=== PATIENT | female | born 1960 | race Caucasian/White ===

== ENCOUNTER → 2022-12-03 | Outpatient (CLI) | payer BC | END | disposition home or self-care (01) | LOC: LABPAT 10:33 | PROVIDERS: ATTEND Orthopaedic Surgery | DX: Z01.812 Encounter for preprocedural laboratory examination (principal); M47.812 Spondylosis without myelopathy or radiculopathy, cervical region; M48.02 Spinal stenosis, cervical region; Z22.322 Carrier or suspected carrier of Methicillin resistant Staphylococcus aureus | CPT/HCPCS: 87070 ==

== ENCOUNTER 2022-12-09 05:36 | Inpatient (IN) | payer BC ==
--- NOTE | 2022-12-08 07:17 | P.HPOR ---
History of Present Illness H&P Date: 12/03/22 . [facility] H&P D:Date: 12/03/22 : 04:56pm .T:Title: *Allergies: Age: 62 year Height: 5'6" Weight: 145 lbs BP:/ BMI: 23.40 kg/m2 Occupation: Unemployed VAS: 10 CHIEF COMPLAINT: Cervical numbness DOI: x1 year DOS: n/a Duration of current treatment regiment: >6 months HISTORY: Xrays Brought xrays from outside facility which were reviewed. New xrays taken in office Trauma or injury No Work-Related No Pain description burning. Location posterior Patient notes that their pain radiates to bilateral upper extremities Activity Modification yes greater than 12 weeks without relief Hand Dominance left TREATMENTS COMPLETED: 6 weeks of PT completed? Month and Year of last PT date? No Physician directed home exercise completed? No Medications No List: Motrin, Tylenol, Medrol, Flexeril greater than 3 weeks without relief Alternative interventions Chiropractic: yes Massage therapy: yes R.I.C.E: yes Brace: No Injections No RFA: No SUBJECTIVE: Ms. Powers presents to the office for an evaluation of their cervical numbness. Patient reports a mild buring and tingling cervical pain ongoing for approx 1 year with no known injury or trauma to indicate an exact onset of their symptoms. In addition to their cervical pain, they do report that it radiates across her bilateral shooulders and into the bilateral upper extremities, associated with numbness and tingling through C4-C5 dermatomal distribution. Ov palomo the patient has seen a progressive increase in symptoms since their onset. Ms. Powers symptoms are exacerbated with flexion or extension of the cervical spine, lifting and/or reaching overhead, due to this they notes that it is increasingly difficult for Ms. Powers to complete many of their daily tasks. She reports an increase in weakness and dropping items without notice from her hands. Ms. Powers states she has had some bladder or bowel retention/incontinence more recently. She does have a history of IBS. Patient is having moderate sleep disturbances as well due to their ongoing pain and associated symptoms. Regarding treatments, the patient has previously trialed the above listed modalities. Patient denies trialing any other modalities at this time. For their symptoms, the patient denies taking analgesics/anticoagulants/narcotics/FER-analogs). Otherwise the patient denies any f/c/sob/cp, no perineal numbness/tingling, and ambulates independently. Dr. Araiza present in exam room and discussed surgical intervention. The patients' past social, medical, family, surgical history, as well as review of systems, have been reviewed. Please refer to the Neurosurgery History and Physical form that has been scanned in to our electronic medical record system. 14 points review of systems completed and as stated in HPI, all other systems reviewed are negative. P3 Social History: .CE:Clinical Elements:Clinical Elements: Smoking:Former Smoker >5 yrs .CE:Clinical Elements:Clinical Elements: Smoking Amount: 1 PPD .CE:Clinical Elements:Clinical Elements: Alcohol: occasional alcohol P3 .CE:Clinical Elements:Clinical Elements: Alcohol Amount: 1-2 drinks/wk P3 Family History: Reviewed, see appropriate section of the chart for details. P2 Past Medical History: Reviewed, see appropriate section of the chart for details. Current Medications: none P1 PHYSICAL EXAMINATION: General: Awake, alert, appropriate for age, in no acute distress. HEENT: No unusual neck masses around region of lateral neck triangle, thyroid, supraclavicular groove Heart: Regular rate and rhythm, normal S1, S2 and no murmur/gallop. Lungs: Clear to auscultation bilaterally with no use of accessory muscles. Extremities: Skin warm and dry without acute lesions, coloration, temperature, skin intact, no tenderness or erythema Integument: Hairy patches: ABSENT Dorsal skin dimples: ABSENT Cafe au lait spots: ABSENT Surgical incisions: n/a Palpation: Please see Pain drawing on Intake sheet for further detail. Midline spinal tenderness: No E6 Cervical Tenderness: Yes E6 Paralumbar tenderness: No E6 Parathoracic tenderness: No E6 Buttocks tenderness: No E6 Sacroilliac Tenderness: No POSTURAL and MUSCULO-SKELETAL EVALUATION: Coronal Balance: NEUTRAL Recumbent testing: Patient is able to lay flat on back Sagittal Balance: NEUTRAL Shoulder Profile: LEVEL Pelvic Girdle: LEVEL Neck ROM: RESTRICTED Lumbar ROM: UNRESTRICTED Shoulder ROM: Symmetrical Hip ROM: Symmetrical Knee ROM: Symmetrical Hands: Normal appearance, symmetrical Feet: Normal appearance, Symmetrical VASCULAR STATUS : LEFT RIGHT Wrist Pulses INTACT INTACT Pedal Pulses (Dors. pedis & post.tibialis) INTACT INTACT Color NORMAL NORMAL Edema Absent Absent NEUROLOGIC EXAMINATION: Mental Status:Awake and alert, fully oriented, with normal attention, concentration and memory, and fluent, appropriate speech. Cranial Nerves: I: Olfactory not tested. II: Visual acuity normal, no visual field deficit noted with confrontation. III,IV: Normal pupillary reflexes & intact extraocular movements without nystagmus. V,: Intact symmetrical facial sensation. VII: Intact symmetrical facial motor movement VIII: Hearing intact. IX,X: Intact gag, swallow, & normal voice. XI: Sternocleidomastoid, trapezius function intact. XII: Tongue midline with normal movements. L'hermitte's Sign: Negative / absent Spurling'Sign: Absent bilaterally. Cubital percussion test: Absent bilaterally. Rome-Tinel sign - Carpal region: Absent bilaterally. Straight Leg Raising: Absent bilaterally. Crossed straight leg raise: negative O8 MOTOR EXAM (0-5/5, N/T Muscle appearance: Symmetrical, without signs of atrophy or dystrophy UPPER EXTREMITY RIGHT LEFT Shoulder Abduction 4/5 4/5 Biceps 4/5 4/5 Triceps 4/5 4/5 Wrist Extension 4/5 4/5 Hand Intrnsics 4/5 4/5 Carpenter Packing 4/5 4/5 Hand and finger dexterity intact bilaterally? yes Disdiadochokinesis examination negative bilaterally? yes LOWER EXTREMITY RIGHT LEFT Hip Flexion 5/5 5/5 Knee Extension 5/5 4/5 Knee Flexion 5/5 5/5 Dorsiflexion 5/5 5/5 Plantarflexion 4/5 5/5 EHL 5/5 5/5 FHL 5/5 5/5 Toe heel walk / heel-toe walk intact while maintaining satisfactory balance? yes Squatting/straightening w/o assistance to a min of 60 degree knee flexion? yes Single leg stance: intact Trendelenburg sign negative bilaterally REFLEXES(0-4/2, NT)Upper ExtremityLower Extremity Right 3 2 Left 3 2 Pathological Reflexes RIGHT LEFT Rome's Present Present Clonus Absent Absent Babinski Absent Absent Sensory system (0-4, N/T) Test type RU MIKE RL LL Joint-Position 1 1 2 2 Vibration 1 1 2 2 Pain & LT sense 1 1 2 2 Dermatomal Deficit: C4-C5 C4-C5 None None Gait and Functional Evaluation: Ambulatory aids: Independent Romberg's test: Intact bilaterally Steady Gait RADIOGRAPHIC STUDIES: XRay Cervical multiview (Lateral, Flexion, Extension, AP, Oblique) 6 views taken at [facility] on 10/13/22: Severe spondylitic and degenerative changes with straightening of the normal lordosis. Complete disc collapse from C2-T1. Severe bilateral foraminal stenosis C3-C7. Vertebral body heights are preserved. No subluxation between flexion and extension films. No acute osseous abnormalities. MRI scancompleted at Outside facility from 09[facility]23/22 [facility]: Impression: 1. C3-C4: Moderate disc height loss and dislocation. Moderate facet hypertrophy. Diffuse circumferential bulge, eccentric to the left. Mild right and moderate left neural foraminal narrowing. Moderate facet hypertrophy. Moderate narrowing of the central canal is 7.5 mm. 2. C4-C5: Moderate to severe disc height loss and desiccation. Diffuse cir cumferential bulge with moderate facet hypertrophy and uncovertebral arthopathy. Moderately severe narrowing of the central canal to 6 mm. Moderate to severe bilateral neural foraminal narrowing. Again underlying signal abnormality is seen within the cord concerning for myelomalacia. 3. C5-C6: Moderate to severe disc height loss with desiccation. Broad based disc osteophyte complex, eccentric to the left. Mild right and moderate to severe left neural foraminal narrowing. Moderate to severe narrowing of the central canal to 6 mm. Facet hypertrophy, uncovertebral arthropathy. 4. C6 to C7: Moderate to severe disc height loss and desiccation. Diffuse circum-[place] bulge with mild right and moderate left neural foraminal narrowing. Facet hypertrophy, uncovertebral arthropathy. Mild narrowing of the central canal. IMPRESSION: It was my pleasure to have seen and examined Zena. I reviewed the patient's clinical syndrome, physical findings, and imaging studies during the appointment today. It is my impression that the patient has a diagnosis of. 1. Cervical spondylotic myelopathy with myelomalacia 2.Severe spondylosis with stenosis C3-7 3. UE weakness 4. LE weakness 5. Gait instability 6. Neck pain I outlined the natural course history without intervention and various interventional options. PLAN: Based on my findings I suggest the following course of action: I discussed treatment options with the patient, including operative and non- operative options, and they have elected to proceed with the following surgical procedure: cervical C2-T1 360 decompression and fusion with staged: Step 1. C3-C7 ACDF; Step 2. C2-T2 decompression The indications, risks, benefits, and alternatives to surgery were discussed wit h the patient and family at length. Specifically but not limited to the risks of infection, stiffness, recurrence of symptoms, need for revision surgery, local numbness, neurovascular injury, and blood clots were discussed. The patient's questions were answered. The decision to proceed was made. Consent will be obtained for the procedure. -Ambulate daily -Take medications as directed -Ice and rest for pain and swelling control. Follow- up: Post op Surgical Procedure Risk Review Zena Powers is a 62 year old female presenting for evaluation of sudden onset of *UE weakness, gait instability, neck pain, radicular pain. It was my pleasure to have seen and examined Ms. Powers. In our visit today we have had a chance to go over subjective complaints, physical examination findings and treatments, including the natural course history without intervention and various interventional options. The imaging demonstrates *Severe spondylosis with stenosis, severe C3-7 with flattened cervical lordosis . On physical exam, Ms. Powers demonstrates *UE weakness, myelopathic findings including hoffmans b/l, 3/4 DTR all, unstady gait, fine motor disrutption . I explained to the patient that as her condition progresses it could cause *Continued or progressive symptoms . At this time, based on the patients imaging and physical exam, I recommend surgery in the form or a: *staged procedure Anterior C3-7 discectomy and fusion with a posterior C2-T2 decompre ssion and fusion . I discussed the risk and benefits of this procedure at length with Ms. Powers. The patient spouseagreed to consider pursuing the procedure mentioned above. Plan: 1. * Staged procedure. I: Anterior C3-7 discectomy and fusion with a II: posterior C2-T2 decompression and fusion 2. * Follow up with PCP for surgical clearance 3. * Review of surgical risks and benefits as well as an educational packet on the proposed surgical procedure. 4. DEL Risks: All surgical procedures come with inherent risks, including those related to positioning, anesthesia, intraoperative findings, and postoperative complications. It is important to understand that surgery does not come with any guarantee of a successful outcome as complications and adverse events are always possible. The patient was given a handout in office today discussing the surgical procedure and risks associated with the intervention, both of which were discussed with the patient. These risks include but are not limited to the following: ? Experiencing same, different or even worse symptoms in back, neck, arms, or legs compared to before surgery. ? Requiring further surgery or other forms of treatment presently or at some time in the future at same or other levels of the intended spine surgery. ? On an extreme but fortunately relatively rare basis severe complication such as blindness, stroke, heart attack, temporary and/or permanent nerve injury, paralysis, coma, or may occur, sometimes without known explanation. ? Surgical complications may include but are not limited to risk of infection, fluid accumulation in the surgical dissection site, including a seroma or hematoma, that requires additional surgery, wound drainage, bleeding, new numbness or weakness, vision changes/loss, spinal fluid leakage, non-healing and/or infected incision, headaches, difficulty or inability to swallow, hoarseness, hemopneumothorax, pneumothorax, impotence, retrograde ejaculation, vaginal dryness; injury to nerves, spinal cord, blood vessels, lymphatics or other vital organs (i.e., bowel injury, injury to the great vessels); heterotopic bone formation; complications related to the hardware such as screws, rods, cages including misplaced hardware, device failure, instrumentation at the wrong spine level, hardware fracture/breakage, or hardware loosening; vertebral failure of the spinal column above or below the newly placed hardware; retained surgical instrumentations or devices and the need for further surgery. ? Medical risks of the planned spine surgery include but are not limited to generalized Infections to the whole body or local areas outside of the surgical site (sepsis), heart attack, bleeding, anaphylaxis, meningitis, seizure, epilepsy, hearing loss, burn chase, laceration of the head or other areas of the body, bruising, hypersensitivity of the skin, bladder over distension; allergic reaction; shoulder injury related to positioning; fat, blood and air clots to other areas of the body like heart, lungs, brain; failure of internal organs such as lungs, kidneys, liver and excessive bleeding. If blood transfusions are necessary, note that transfusions may cause intolerance reactions such as anaphylaxis or other complex reactions. Despite best efforts, the results of spine surgery might not heal in terms of abram ne, soft tissues such as skin, fascia, ligaments, and joints. Additionally, in order to achieve best possible results, spine surgery may be carried out beyond the initially planned levels and involve decompression, fusion including insertion of hardware at levels other than the original intended area of surgical interest change some portions of the procedure in order to ensure the best possible outcomes. With spine surgery and spinal fusion, there are different off label uses of instrumentation (devices, implants and hardware) as well as biological substances (bone morphogenic proteins, demineralized bone matrix) as well as using extra bone from allograft sources (i.e. cadaver bone) or autograft (iliac crest bone, ribs, or the spine itself). The patient has been given information about these practices and their inherent risks and benefits. [facility] Physician Assistants are medically trained surgical providers who function in the outpatient, inpatient, and operating room setting under the direct supervision of the attending surgeon.They assist in the operating room with direct supervision of the attending surgeons. The patient has had a chance to review all the listed information, has been given print outs detailing this information, and has had all his/her questions answered to their satisfaction. It was my pleasure to have seen and examined Ms. Powers. In our visit today we have had a chance to go over my understanding of our patient's current condition, the natural course history without intervention and various interventional options. Questions were invited and answered, and the patient wishes to proceed as outlined above. I have seen and examined the patient for 25 minutes and we have spent more than 50% of the time in repeat and detailed counseling about the patient's condition, its natural course history with out and as much as can be predicted with surgery and re-review of various surgical treatment options. In conclusion,Ms. Powers and her spouse/partner requested we proceed with the above suggested surgery and are willing to accept risks and limitations of the suggested surgery as nature of the disease process and our best attempts at treatment for the condition. Thank you again for allowing us to be part of your patient's care. Please don't hesitate to contact me if you have any further questions. Signed and authenticated by: [facility] [address] [address] Past Medical History Past Medical History: COPD, Eye Disorder, Hyperlipidemia, Osteoarthritis (OA) Additional Past Medical History / Comment(s): Glaucoma. History of Any Multi-Drug Resistant Organisms: None Reported Past Surgical History: Orthopedic Surgery Additional Past Surgical History / Comment(s): Right wrist carpal tunnel surgery, right knee surgery. Past Anesthesia/Blood Transfusion Reactions: No Reported Reaction Past Psychological History: No Psychological Hx Reported Smoking Status: Current every day smoker Past Alcohol Use History: Occasional Additional Past Alcohol Use History / Comment(s): Smokes 1 ppd since age 15. Past Drug Use History: None Reported - Past Family History Sister(s) Family Medical History: No Reported History Medications and Allergies Home Medications Medication Instructions Recorded Confirmed Type Cholecalciferol [Vitamin D3 (125 250 mcg PO DAILY 12/04/22 12/04/22 History Mcg = 5000 Iu)] Collagen Powder 1 dose PO DAILY 12/04/22 12/04/22 History Psyllium Husk (with Sugar) 1 dose PO DAILY 12/04/22 12/04/22 History [Metamucil Powder] Vitamin C 3 tab PO DAILY 12/04/22 12/04/22 History Vitamin K2 [Mk-7] 180 mcg PO DAILY 12/04/22 12/04/22 History Allergies Allergy/AdvReac Type Severity Reaction Status Date / Time iodine IV Allergy Vomiting Uncoded 12/04/22 14:45 Physical Examination Osteopathic Statement: *. No significant issues noted on an osteopathic structural exam other than those noted in the History and Physical/Consult.
[~2022-12-09 05:36] MED LIST: ACETAMINOPHEN TAB 500 MG TAB PO PRN; GABAPENTIN 300 MG CAP PO PRN; ONDANSETRON 4 MG/2 ML VIAL IVP PRN; TRANEXAMIC 1,000 MG/100ML-NACL 1,000 MG in SALINE 1 100ML.BAG IVPB PRN
[2022-12-09] MEDS ORDERED: DEXAMETHASONE SOD PHOSPHATE 4 MG/ML 1 ML VIAL IV ONE (05:44)
[2022-12-09] MEDS ORDERED: LIDOCAINE 1% (10MG/ML) FOR IV START INTRADERMA PRN (05:44)
[2022-12-09] MEDS ORDERED: droPERidol 5 MG/2 ML VIAL IVP ONE (05:44)
[2022-12-09] MEDS: LACTATED RINGERS 1,000 ML IV SCH (05:56)
[2022-12-09] MEDS ORDERED: fentaNYL (PF) 50 MCG/ML 2 ML AMP IVP ONE (06:58)
[2022-12-09] MEDS ORDERED: MIDAZOLAM 2 MG/2 ML VIAL IVP ONE (06:58)
[2022-12-09] MEDS ORDERED: HYDROmorphone 0.5 MG/0.5 ML SYRINGE IVP PRN (07:00)
[2022-12-09] MEDS ORDERED: ONDANSETRON 4 MG/2 ML VIAL IVP PRN (07:00)
[2022-12-09] MEDS ORDERED: ONDANSETRON 4 MG/2 ML VIAL ONE (07:50)
[2022-12-09] MEDS ORDERED: SUCCINYLCHOLINE CHLORIDE 200 MG/10 ML VIAL IV ONE (07:50)
[2022-12-09] MEDS ORDERED: hydrALAZINE HCL 20 MG/ML 1 ML VIAL ONE (07:50)
[2022-12-09] MEDS ORDERED: fentaNYL (PF) 50 MCG/ML 2 ML AMP ONE (07:50)
[2022-12-09] MEDS ORDERED: KETAMINE 10 MG/ML 20 ML VIAL ONE (07:50)
[2022-12-09] MEDS ORDERED: GLYCOPYRROLATE 0.2 MG/ML 2 ML VIAL ONE (07:50)
[2022-12-09] MEDS ORDERED: MIDAZOLAM 2 MG/2 ML VIAL ONE (07:50)
[2022-12-09] MEDS ORDERED: ePHEDrine 50 MG/ML 1 ML VIAL ONE (07:50)
[2022-12-09] MEDS ORDERED: PROPOFOL 10 MG/ML 20 ML VIAL IV ONE (07:50)
[2022-12-09] MEDS ORDERED: SUGAMMADEX SODIUM 200 MG/2 ML SDV IV ONE (07:50)
[2022-12-09] MEDS ORDERED: NEOSTIGMINE 1 MG/ML 10 ML VIAL ONE (07:50)
[2022-12-09] MEDS ORDERED: ROCURONIUM 10 MG/ML (5 ML VIAL) IV ONE (07:50)
[2022-12-09] MEDS ORDERED: LIDOCAINE 2% INJ 20 MG/ML (2 ML VIAL) ONE (07:50)
--- NOTE | 2022-12-09 09:32 | P.ANPRN ---
Procedure Note - Anesthesia - Invasive Line Right Arterial Line Time Out Performed: Yes ([id number]) Date of Procedure: 12/09/22 Time of Procedure: 06:58 Location of Patient: PreOp Preparation: Sterile Prep, Sterile Dressing Arterial Line Location: Radial (right) Ultrasound Used: No Purpose - Visualization and Identification of Vasculature: No Needle Guage: 20g Image Stored and Saved: No Narrative: Central line placement per sterile protocol utilized. sterile protocol. Lumen bled and lfushed. secured with suture.
[2022-12-09] MEDS ORDERED: THROMBIN (BOVINE) 5,000 UNIT VIAL TOPICAL ONE (09:56)
[2022-12-09] MEDS ORDERED: GELATIN SPONGE,ABSORB (LARGE) 1 EACH SPONGE TOPICAL ONE (09:56)
--- NOTE | 2022-12-09 10:39 | XR ---
Intraoperative/procedural fluoroscopic services were provided for anterior cervical fusion. Total flu oroscopy time is 31 seconds with a total of 7 submitted images to PACS. Total DAP 0.7383 Gycm2. Plea se see the operative note for further details.
[2022-12-09] MEDS ORDERED: LACTATED RINGERS 1,000 ML IV ONE ×2 (11:00→12:14)
[2022-12-09] MEDS ORDERED: VANCOMYCIN 1,000 MG VIAL MISCELLANE ONE (12:39)
[2022-12-09] MEDS ORDERED: ceFAZolin 3,000 MG in SODIUM CHLORIDE 0.9% IRRIGATIO 3,000 ML IRRIGATION ONE (12:57)
[2022-12-09] MEDS ORDERED: GENTAMICIN 80 MG in SODIUM CHLORIDE 0.9% IRRIGATIO 3,000 ML IRRIGATION ONE (12:58)
[2022-12-09] MEDS ORDERED: MIDAZOLAM 2 MG/2 ML VIAL IV ONE (13:50)
[2022-12-09] MEDS ORDERED: CYCLOBENZAPRINE 5 MG TAB PO PRN (15:48)
[2022-12-09] MEDS ORDERED: HYDROcodone/APAP 5-325MG 1 EACH TAB PO PRN (15:48)
[2022-12-09] MEDS ORDERED: MAGNESIUM HYDROXIDE 2,400 MG/10 ML CUP PO PRN (15:48)
[2022-12-09] MEDS ORDERED: SENNOSIDES-DOCUSATE SODIUM 1 EACH TAB PO PRN (15:48)
[2022-12-09] MEDS ORDERED: hydrALAZINE HCL 20 MG/ML 1 ML VIAL IV ONE (16:02)
[2022-12-09] MEDS: HYDROmorphone 0.5 MG/0.5 ML SYRINGE IVP PRN (17:03)
[2022-12-09] MEDS: GABAPENTIN 300 MG CAP PO SCH ×2 (17:04→21:02)
[2022-12-09] MEDS: ACETAMINOPHEN TAB 325 MG TAB PO SCH (17:04)
--- NOTE | 2022-12-09 17:37 | P.CONS ---
History of Present Illness - Reason for Consult Consult date: 12/09/22 - History of Present Illness Patient is a 62-year-old female with no past medical history and only takes vitamins at home who is admitted to the hospital for cervical decompression. Patient was seen after her surgery. She states that she feels "wonderful". Per family she just received some pain medication. Medicine has been consulted for medical management. Review of symptoms: 10 ROS reviewed and are negative except as noted in HPI Physical exam General: [Alert and oriented, well nourished, no acute distress]. Eye: [PERRL, EOMI, normal conjunctiva]. HENT: [Normocephalic, clear tympanic membranes, normal hearing, moist oral mucosa, no scleral icterus, no sinus tenderness, + neck brace]. Lungs: [Clear to auscultation and percussion, non-labored respiration]. Heart: [Tachycardic, no murmur, gallop or edema]. Abdomen: [Soft, non-tender, non-distended, normal bowel sounds, no masses]. Musculoskeletal: [Normal range of motion and strength, no tenderness or swelling]. Skin: [Skin is warm, dry and pink, no rashes or lesions]. Neurologic: [Awake, alert, and oriented X3, CN II-XII intact]. Psychiatric: [Cooperative, appropriate mood and affect]. Assessment Elevated blood pressure Status post cervical decompression Plan For now we'll continue to monitor patient's blood pressure. If remains elevated we'll start her on blood pressure medications. Continue current pain regimen We will follow along with you Past Medical History Past Medical History: COPD, Eye Disorder, Hyperlipidemia, Osteoarthritis (OA) Additional Past Medical History / Comment(s): Glaucoma. History of Any Multi-Drug Resistant Organisms: None Reported Past Surgical History: Orthopedic Surgery Additional Past Surgical History / Comment(s): Right wrist carpal tunnel surgery, right knee surgery. Past Anesthesia/Blood Transfusion Reactions: No Reported Reaction Past Psychological History: No Psychological Hx Reported Smoking Status: Current every day smoker Past Alcohol Use History: Occasional Additional Past Alcohol Use History / Comment(s): Smokes 1 ppd since age 15. Past Drug Use History: None Reported - Past Family History Sister(s) Family Medical History: No Reported History Medications and Allergies Home Medications Medication Instructions Recorded Confirmed Type Cholecalciferol [Vitamin D3 (125 250 mcg PO DAILY 12/04/22 12/09/22 History Mcg = 5000 Iu)] Collagen Powder 1 dose PO DAILY 12/04/22 12/09/22 History Psyllium Husk (with Sugar) 1 dose PO DAILY 12/04/22 12/09/22 History [Metamucil Powder] Vitamin C 3 tab PO DAILY 12/04/22 12/09/22 History Vitamin K2 [Mk-7] 180 mcg PO DAILY 12/04/22 12/09/22 History Allergies Allergy/AdvReac Type Severity Reaction Status Date / Time iodine IV Allergy Vomiting Uncoded 12/09/22 05:56 Physical Exam Osteopathic Statement: *. No significant issues noted on an osteopathic structural exam other than those noted in the History and Physical/Consult. Vitals: Vital Signs Temp Pulse Resp BP Pulse Ox FiO2 12/09/22 17:03 97.6 F 92 16 166/81 99 12/09/22 16:32 87 16 174/77 100 12/09/22 16:15 91 16 184/87 100 12/09/22 16:00 76 16 192/89 100 12/09/22 15:45 76 16 181/88 100 12/09/22 15:30 79 16 184/87 100 12/09/22 15:15 82 16 175/85 100 12/09/22 15:00 76 16 184/91 99 12/09/22 14:45 80 16 176/85 99 12/09/22 14:30 80 16 175/86 99 12/09/22 14:15 77 16 171/85 99 12/09/22 14:00 80 16 168/84 99 12/09/22 13:52 50 12/09/22 13:45 83 16 138/91 99 50 12/09/22 13:39 50 12/09/22 13:37 97 F L 82 16 145/94 99 12/09/22 07:08 67 16 131/76 100 12/09/22 06:02 97.0 F L 56 L 16 169/88 100 Intake and Output 12/09/22 12/09/22 12/09/22 06:59 14:59 22:59 Intake Total 200 3152 Output Total 600 650 Balance 200 2552 -650 Intake: IV 200 3152 Output: Urine 400 650 Estimated Blood Loss 200 Other: Weight 71 kg
--- NOTE | 2022-12-09 18:30 | CT ---
EXAMINATION TYPE: CT cervical spine wo con CT DLP: 488.3 mGycm, Automated exposure control for dose reduction was used. DATE OF EXAM: 12/09/2022 6:10 PM COMPARISON: 10/13/2022 CLINICAL INDICATION:Female, 62 years old with history of post-op eval s/p C3-C7 ACDF; C2-T2 post cerv dec/f; PHH, post-op TECHNIQUE: Axial CT images from the skull base to the inferior aspect of T2 we obtained without intra venous contrast. Coronal and sagittal reformatted images were also reviewed. Contrast used: mL of , (if blank None) Oral contrast used: (if blank None) FINDINGS: Postsurgical changes to the spine with multiple levels with fixation hardware. Hardware appears intac t. Laminectomy changes C3-C7. Surgical bed gas as well as gas tracking along the myofascial planes of the back is present. Drainage catheter with tip near the surgical bed posteriorly. Gastric along the anterior myofascial planes also with drainage catheter in place anteriorly. Skin biju are present . Within the limitations exam no evidence for significant spinal canal or neural foraminal stenosis. IMPRESSION: Postsurgical changes without evidence for immediate postop complication.
[2022-12-09] MEDS: HYDROmorphone 1 MG/ML 1 ML SYRINGE IVP PRN (21:00)
[2022-12-09] MEDS: HYDROcodone/APAP 10-325MG 1 EACH TAB PO PRN (22:30)
[2022-12-10] MEDS: HYDROmorphone 1 MG/ML 1 ML SYRINGE IVP PRN ×6 (00:22→20:27)
[2022-12-10] MEDS: ACETAMINOPHEN TAB 325 MG TAB PO SCH ×5 (00:59→23:48)
[2022-12-10] MEDS: ONDANSETRON 4 MG/2 ML VIAL IVP PRN ×2 (07:11→17:19)
[2022-12-10 07:29] LABS: Basophils % (A) 0 %; Eosinophils # (A) 0.1 k/uL (0-0.7); Eosinophils % (A) 1 %; HCT 39.7 % (34.0-46.0); HGB 13.4 gm/dL (11.4-16.0); Lymphocytes # (A) 0.7 k/uL (1.0-4.8); Lymphocytes % (A) 6 %; MCH 33.1 pg (25.0-35.0); MCHC 33.9 g/dL (31.0-37.0); MCV 97.7 fL (80.0-100.0); Mean Platelet Volume 7.1; Monocytes # (A) 0.7 k/uL (0-1.0); Monocytes % (A) 5 %; Neutrophils # (A) 10.8 k/uL (1.3-7.7); Neutrophils % (A) 87 %; Platelet Count 184 k/uL (150-450); RBC 4.06 m/uL (3.80-5.40); RDW 12.8 % (11.5-15.5); WBC 12.3 k/uL (3.8-10.6)
[2022-12-10 08:06] LABS: African American GFR (CKD) >90 (>60 ml/min/1.73 sqM); Anion Gap 6 mmol/L; Blood Urea Nitrogen 8 mg/dL (7-17); Calcium 8.1 mg/dL (8.4-10.2); Carbon Dioxide 25 mmol/L (22-30); Chloride 94 mmol/L (98-107); Glucose 110 mg/dL (74-99); Non-African American GFR(CKD) >90 (>60 ml/min/1.73 sqM); Potassium 3.3 mmol/L (3.5-5.1); Sodium 125 mmol/L (137-145)
[2022-12-10] MEDS: GABAPENTIN 300 MG CAP PO SCH ×3 (08:32→20:28)
[2022-12-10] MEDS ORDERED: POTASSIUM CHLORIDE ER 20 MEQ TAB.ER PO STA (11:19)
[2022-12-10] MEDS ORDERED: SODIUM CHLORIDE 0.9% 2,000 ML IV ONE (11:20)
--- NOTE | 2022-12-10 11:23 | P.PN ---
Subjective Progress Note Date: 12/10/22 Subjective Patient stated that she has vomited 3 times this morning. She is complaining of nausea. She is also complaining of back pain. states that patient has not needed anything since surgery. Physical exam General: [Alert and oriented, well nourished, no acute distress]. Eye: [PERRL, EOMI, normal conjunctiva]. HENT: [Normocephalic, clear tympanic membranes, normal hearing, moist oral mucosa, no scleral icterus, no sinus tenderness, + neck brace]. Lungs: [Clear to auscultation and percussion, non-labored respiration]. Heart: [Tachycardic, no murmur, gallop or edema]. Abdomen: [Soft, non-tender, non-distended, normal bowel sounds, no masses]. Musculoskeletal: [Normal range of motion and strength, no tenderness or swelling]. Skin: [Skin is warm, dry and pink, no rashes or lesions]. Neurologic: [Awake, alert, and oriented X3, CN II-XII intact]. Psychiatric: [Cooperative, appropriate mood and affect]. Assessment Hypovolemic hyponatremia secondary to decreased by mouth intake Hypokalemia secondary to GI losses Intractable nausea vomiting secondary to anesthesia as well as opioids Elevated blood pressure; better controlled this morning Status post cervical decompression Plan Patient's sodium level this morning is 125. Will give 2 negative fluid bolus of normal saline We'll order 60 mEq of potassium chloride Check BMP tomorrow morning Continue supportive care for nausea vomiting. Try to limit opioids Blood pressure better controlled this morning. Continue current pain regimen We will follow along with you Objective - Vital Signs Vital signs: Vital Signs Temp 97.8 F 12/10/22 07:15 Pulse 70 12/10/22 07:15 Resp 16 12/10/22 07:15 BP 173/84 12/10/22 07:15 Pulse Ox 97 12/10/22 07:15 FiO2 50 12/09/22 13:52 Intake & Output 12/09/22 12/10/22 12/10/22 18:59 06:59 18:59 Intake Total 3152 Output Total 1760 950 Balance 1392 -950 Weight 71 kg Intake: IV 3152 Output: Drainage 10 Anterior 10 Urine 1550 950 Estimated Blood Loss 200 Other: Voiding Method Indwelling Catheter - Labs CBC & Chem 7: 12/10/22 06:43 12/10/22 06:43 Labs: Abnormal Lab Results - Last 24 Hours (Table) 12/10/22 12/10/22 Range/Units 06:43 06:43 WBC 12.3 H (3.8-10.6) k/uL Neutrophils # 10.8 H (1.3-7.7) k/uL Lymphocytes # 0.7 L (1.0-4.8) k/uL Sodium 125 L (137-145) mmol/L Potassium 3.3 L (3.5-5.1) mmol/L Chloride 94 L (98-107) mmol/L Creatinine 0.50 L (0.52-1.04) mg/dL Glucose 110 H (74-99) mg/dL Calcium 8.1 L (8.4-10.2) mg/dL
[2022-12-10] MEDS ORDERED: POTASSIUM CHLORIDE ER 20 MEQ TAB.ER PO ONE (13:00)
--- NOTE | 2022-12-10 13:27 | P.PN ---
Subjective Progress Note Date: 12/10/22 Principal diagnosis: 1. Cervical spondylotic myelopathy with myelomalacia 2.Severe spondylosis with stenosis C3-7 3. UE weakness 4. LE weakness 5. Gait instability 6. Neck pain Patient was seen at bedside this morning lying semirecumbent position with hard cervical collar in place. Patient says she did have an episode of vomiting this morning. Patient says she is in a lot of pain currently. Patient says she has urinated since surgery several times. Patient says she has not had bowel movement yet, however, patient says she has passed gas. Patient says overnight she must of entering in bed with both drains were removed. There has been moderate amount of serous in his output and saturation of current dressings. Patient says she is currently somewhat nauseous. Zofran has helped a little bit with the nausea. Patient denies chest pain, fever, shortness of breath, change in vision, loss of bowel/bladder control. Objective - Vital Signs Vital signs: Vital Signs Temp 97.8 F 12/10/22 07:15 Pulse 70 12/10/22 07:15 Resp 16 12/10/22 07:15 BP 173/84 12/10/22 07:15 Pulse Ox 97 12/10/22 07:15 FiO2 50 12/09/22 13:52 Intake & Output 12/09/22 12/10/22 12/10/22 18:59 06:59 18:59 Intake Total 3152 Output Total 1760 950 Balance 1392 -950 Weight 71 kg Intake: IV 3152 Output: Drainage 10 Anterior 10 Urine 1550 950 Estimated Blood Loss 200 Other: Voiding Method Indwelling Catheter - Exam Inspection: Hard cervical collar is in place at this time. Anterior cervical and posterior cervical dressing is saturated serosanguineous output at this time. Patient did remove drains overnight. Dressings were taken down new dressings were applied over incisions. Incisions appear to be doing well this time. Negative for any active drainage. Sensation: There is a dermatomal deficits to bilateral upper extremities at C4 to C5. Rest of sensation is equal, symmetric by intact throughout upper and lower extremities. Palpation: Moderate tenderness to palpation over the anterior cervical and posterior cervical incisions. Nontender to palpation throughout rest exam. Range of motion: Patient has full range of motion bilateral upper extremities and wrist flexion/extension and elbow flexion/extension. There is limited range of motion in shoulders bilaterally in flexion/extension and abduction and external/internal rotation secondary to referred pain from the neck. Patient has full range of motion bilateral lower extremities on exam. Motor: 4/5 in all major motor groups bilateral upper extremity. 5/5 all major motor groups in bilateral lower extremities. Neurovascular status: Radial pulse intact, 2+ bilaterally. Cap refill under 3 seconds in digits upper extremities. Special tests: Negative Homans bilaterally. Negative [place] bilaterally. Negative clonus bilaterally. - Labs CBC & Chem 7: 12/10/22 06:43 12/10/22 06:43 Labs: Abnormal Lab Results - Last 24 Hours (Table) 12/10/22 12/10/22 Range/Units 06:43 06:43 WBC 12.3 H (3.8-10.6) k/uL Neutrophils # 10.8 H (1.3-7.7) k/uL Lymphocytes # 0.7 L (1.0-4.8) k/uL Sodium 125 L (137-145) mmol/L Potassium 3.3 L (3.5-5.1) mmol/L Chloride 94 L (98-107) mmol/L Creatinine 0.50 L (0.52-1.04) mg/dL Glucose 110 H (74-99) mg/dL Calcium 8.1 L (8.4-10.2) mg/dL Assessment and Plan Assessment: 1. Cervical spondylotic myelopathy with myelomalacia; Severe spondylosis with stenosis C3-7; UE weakness; LE weakness; Gait instability; Neck pain Postoperative day 1 status post C3-C7 ACDF and C2-T1 posterior cervical decompression and fusion Plan: 1. Cervical spondylotic myelopathy with myelomalacia; Severe spondylosis with stenosis C3-7; UE weakness; LE weakness; Gait instability; Neck pain - C3-C7 ACDF and C2-T1 posterior cervical decompression and fusion performed yesterday, 12/09/2022. Patient stable at bedside this morning; positioned hard cervical collar in place. Patient did pullout drains overnight. Patient did have an episode of vomiting this morning. Zofran has been ordered. Continue pain medication as needed. Physical therapy daily. Dressing was changed at bedside today. Both the anterior and posterior cervical dressing was saturated with serosanguineous drainage. We'll continue to follow patient during her stay in hospital. 2. Appreciate medical management 3. Pain management - [place]; Flexeril; gabapentin 4. GI prophylaxis - senna; milk of magnesia 5. DVT prophylaxis - mechanical 6. Weightbearing as tolerated with walker. Hard cervical collar on at all times. 7. Encourage incentive spirometer use 8. Discharge planning - pending Time with Patient: Less than 30
[2022-12-10 13:30] VITALS: BMI 25.2
[2022-12-10] MEDS: LACTATED RINGERS 1,000 ML IV SCH (15:06)
[2022-12-10] MEDS: FLUTICASONE 50MCG/SPRAY NASAL 16GM EA NOSTRIL SCH (17:29)
[2022-12-10] MEDS: HYDROcodone/APAP 10-325MG 1 EACH TAB PO PRN (23:49)
[2022-12-11] MEDS: HYDROmorphone 1 MG/ML 1 ML SYRINGE IVP PRN ×2 (03:32→10:10)
[2022-12-11] MEDS: ACETAMINOPHEN TAB 325 MG TAB PO SCH ×3 (06:34→18:24)
[2022-12-11 07:00] LABS: African American GFR (CKD) >90 (>60 ml/min/1.73 sqM); Anion Gap 5 mmol/L; Blood Urea Nitrogen 5 mg/dL (7-17); Calcium 8.6 mg/dL (8.4-10.2); Carbon Dioxide 30 mmol/L (22-30); Chloride 97 mmol/L (98-107); Glucose 112 mg/dL (74-99); Non-African American GFR(CKD) >90 (>60 ml/min/1.73 sqM); Potassium 3.7 mmol/L (3.5-5.1); Sodium 132 mmol/L (137-145)
[2022-12-11] MEDS: HYDROcodone/APAP 10-325MG 1 EACH TAB PO PRN ×2 (07:53→18:25)
[2022-12-11] MEDS: GABAPENTIN 300 MG CAP PO SCH ×3 (07:55→20:40)
[2022-12-11] MEDS: FLUTICASONE 50MCG/SPRAY NASAL 16GM EA NOSTRIL SCH (07:56)
--- NOTE | 2022-12-11 11:59 | P.PN ---
Subjective Progress Note Date: 12/11/22 Subjective Patient states that her nausea vomiting have resolved. Overall she is feeling much better today. Physical exam General: [Alert and oriented, well nourished, no acute distress]. Eye: [PERRL, EOMI, normal conjunctiva]. HENT: [Normocephalic, clear tympanic membranes, normal hearing, moist oral mucosa, no scleral icterus, no sinus tenderness, + neck brace]. Lungs: [Clear to auscultation and percussion, non-labored respiration]. Heart: [Tachycardic, no murmur, gallop or edema]. Abdomen: [Soft, non-tender, non-distended, normal bowel sounds, no masses]. Musculoskeletal: [Normal range of motion and strength, no tenderness or swelling]. Skin: [Skin is warm, dry and pink, no rashes or lesions]. Neurologic: [Awake, alert, and oriented X3, CN II-XII intact]. Psychiatric: [Cooperative, appropriate mood and affect]. Assessment Hypovolemic hyponatremia secondary to decreased by mouth intake; improved Hypokalemia secondary to GI losses; resolved Intractable nausea vomiting secondary to anesthesia as well as opioids; resolved Newly diagnosed hypertension Status post cervical decompression Plan Patient's sodium this morning is 132 Patient's potassium this morning is 3.7 Patient's nausea and vomiting have resolved Patient blood pressure still elevated. We'll start the patient on amlodipine 10 mg daily Pain management as per primary team med rec completed Objective - Vital Signs Vital signs: Vital Signs Temp 98.4 F 12/11/22 07:45 Pulse 83 12/11/22 07:45 Resp 14 12/11/22 07:45 BP 176/78 12/11/22 07:45 Pulse Ox 96 12/11/22 09:17 FiO2 21 12/11/22 09:17 Intake & Output 12/10/22 12/11/22 12/11/22 18:59 06:59 18:59 Output Total 1200 3600 800 Balance -1200 -3600 -800 Weight 71 kg Output: Urine 1200 3600 800 Uretheral (Isaac) 800 Other: Voiding Method Indwelling Catheter Indwelling Catheter - Labs CBC & Chem 7: 12/10/22 06:43 12/11/22 06:25 Labs: Abnormal Lab Results - Last 24 Hours (Table) 12/11/22 Range/Units 06:25 Sodium 132 L (137-145) mmol/L Chloride 97 L (98-107) mmol/L BUN 5 L (7-17) mg/dL Glucose 112 H (74-99) mg/dL
[2022-12-11] MEDS: amLODIPine 10 MG TAB PO SCH (12:40)
--- NOTE | 2022-12-11 14:25 | P.PN ---
Subjective Progress Note Date: 12/11/22 Principal diagnosis: 1. Cervical spondylotic myelopathy with myelomalacia 2.Severe spondylosis with stenosis C3-7 3. UE weakness 4. LE weakness 5. Gait instability 6. Neck pain Patient was seen at bedside this morning sitting up in chair. Patient says she did get up in chair. She says she is doing much better today than she was yesterday. Patient says she had did feel somewhat lightheaded when she got up, however, she has been feeling much better now. Patient says she is not feeling nauseous anymore like she was yesterday morning. Patient says she is hoping to go home tomorrow. Patient says she has urinated on her own since weight was removed. Patient says she has not had bowel movement yet, however, patient says she has been passing gas. Patient denies chest pain, fever, shortness breath, nausea, vomiting, change in vision, loss of bowel/bladder control. Objective - Vital Signs Vital signs: Vital Signs Temp 98.4 F 12/11/22 07:45 Pulse 83 12/11/22 07:45 Resp 14 12/11/22 07:45 BP 176/78 12/11/22 07:45 Pulse Ox 96 12/11/22 09:17 FiO2 21 12/11/22 09:17 Intake & Output 12/10/22 12/11/22 12/11/22 18:59 06:59 18:59 Output Total 1200 3600 Balance -1200 -3600 Weight 71 kg Output: Urine 1200 3600 Other: Voiding Method Indwelling Catheter Indwelling Catheter - Exam Inspection: Hard cervical collar is in place at this time. Anterior cervical and posterior cervical dressing present with some spotting. Incisions appear to be doing well this time. Negative for any active drainage. Sensation: There is a dermatomal deficits to bilateral upper extremities at C4 to C5. Rest of sensation is equal, symmetric by intact throughout upper and lower extremities. Palpation: Moderate tenderness to palpation over the anterior cervical and posterior cervical incisions. Nontender to palpation throughout rest exam. Range of motion: Patient has full range of motion bilateral upper extremities and wrist flexion/extension and elbow flexion/extension. There is limited range of motion in shoulders bilaterally in flexion/extension and abduction and external/internal rotation secondary to referred pain from the neck. Patient has full range of motion bilateral lower extremities on exam. Motor: 4/5 in all major motor groups bilateral upper extremity. 5/5 all major motor groups in bilateral lower extremities. Neurovascular status: Radial pulse intact, 2+ bilaterally. Cap refill under 3 seconds in digits upper extremities. Special tests: Negative Homans bilaterally. Negative Shaniqua bilaterally. Negative clonus bilaterally. - Labs CBC & Chem 7: 12/10/22 06:43 12/11/22 06:25 Labs: Abnormal Lab Results - Last 24 Hours (Table) 12/11/22 Range/Units 06:25 Sodium 132 L (137-145) mmol/L Chloride 97 L (98-107) mmol/L BUN 5 L (7-17) mg/dL Glucose 112 H (74-99) mg/dL Assessment and Plan Assessment: 1. Cervical spondylotic myelopathy with myelomalacia; Severe spondylosis with stenosis C3-7; UE weakness; LE weakness; Gait instability; Neck pain Postoperative day 2 status post C3-C7 ACDF and C2-T1 posterior cervical decompression and fusion Plan: 1. Cervical spondylotic myelopathy with myelomalacia; Severe spondylosis with stenosis C3-7; UE weakness; LE weakness; Gait instability; Neck pain - C3-C7 ACDF and C2-T1 posterior cervical decompression and fusion performed yesterday, 12/09/2022. Patient stable at bedside this morning; hard cervical collar in place. incisions healing well. plan for dressing change tomorrow. Continue pain medication as needed. Physical therapy daily. We'll continue to follow patient during her stay in hospital. Plan for discharge home tomorrow. 2. Appreciate medical management 3. Pain management - [place]; Flexeril; gabapentin 4. GI prophylaxis - senna; milk of magnesia 5. DVT prophylaxis - mechanical 6. Weightbearing as tolerated with walker. Hard cervical collar on at all times. 7. Encourage incentive spirometer use 8. Discharge planning - plan for discharge home tomorrow. Time with Patient: Less than 30
[2022-12-11] MEDS: HYDROmorphone 0.5 MG/0.5 ML SYRINGE IVP PRN ×2 (15:56→20:39)
[2022-12-12 01:41] VITALS: PULSE 80
[2022-12-12] MEDS: HYDROmorphone 1 MG/ML 1 ML SYRINGE IVP PRN (03:30)
[2022-12-12] MEDS: ACETAMINOPHEN TAB 325 MG TAB PO SCH ×3 (06:01→11:50)
[2022-12-12] MEDS: HYDROcodone/APAP 10-325MG 1 EACH TAB PO PRN ×2 (06:01→11:51)
[2022-12-12 07:46] VITALS: BP 127/57; RESP 14; TEMP 98.2
[2022-12-12] MEDS: GABAPENTIN 300 MG CAP PO SCH (08:08)
[2022-12-12] MEDS: HYDROmorphone 0.5 MG/0.5 ML SYRINGE IVP PRN ×2 (08:09)
[2022-12-12] MEDS: amLODIPine 10 MG TAB PO SCH (08:09)
[2022-12-12] MEDS: FLUTICASONE 50MCG/SPRAY NASAL 16GM EA NOSTRIL SCH (08:10)
--- NOTE | 2022-12-12 11:25 | P.PN ---
Subjective Progress Note Date: 12/12/22 Subjective Patient has no acute complaints this morning. Physical exam General: [Alert and oriented, well nourished, no acute distress]. Eye: [PERRL, EOMI, normal conjunctiva]. HENT: [Normocephalic, clear tympanic membranes, normal hearing, moist oral mucosa, no scleral icterus, no sinus tenderness, + neck brace]. Lungs: [Clear to auscultation and percussion, non-labored respiration]. Heart: [Tachycardic, no murmur, gallop or edema]. Abdomen: [Soft, non-tender, non-distended, normal bowel sounds, no masses]. Musculoskeletal: [Normal range of motion and strength, no tenderness or swelling]. Skin: [Skin is warm, dry and pink, no rashes or lesions]. Neurologic: [Awake, alert, and oriented X3, CN II-XII intact]. Psychiatric: [Cooperative, appropriate mood and affect]. Assessment Hypovolemic hyponatremia secondary to decreased by mouth intake; improved Hypokalemia secondary to GI losses; resolved Intractable nausea vomiting secondary to anesthesia as well as opioids; resolved Newly diagnosed hypertension Status post cervical decompression Plan Patient's blood pressure this morning is controlled Patient does not want to start blood pressure meds. I told patient that she should check her blood pressure at home and if greater than 140 systolically then she should take the amlodipine that I prescribed. Pain management as per primary team med rec completed Patient stable for discharge from a medical standpoint Objective - Vital Signs Vital signs: Vital Signs Temp 98.2 F 12/12/22 07:05 Pulse 80 12/12/22 08:10 Resp 14 12/12/22 08:10 BP 127/57 12/12/22 07:05 Pulse Ox 95 12/12/22 08:03 FiO2 21 12/12/22 08:03 Intake & Output 12/11/22 12/12/22 12/12/22 18:59 06:59 18:59 Output Total 810 Balance -810 Weight 71 kg Output: Drainage 10 Anterior 10 Urine 800 Uretheral (Isaac) 800 Other: Voiding Method Indwelling Catheter Toilet Toilet # Voids 3 - Labs CBC & Chem 7: 12/10/22 06:43 12/11/22 06:25
--- NOTE | 2022-12-12 12:24 | P.DS ---
Providers Date of admission: 12/09/22 05:36 Expected date of discharge: 12/12/22 Attending physician: Giovanni Araiza DO Consults: 12/09/22 15:48 Consult Physician Routine Consulting Provider: Josefa Romero Consult Reason/Comments: medical management s/p C3-C7 ACDF; C2-T2 posterior cervical decompr/fusion Do you want consulting provider notified?: Yes Primary care physician: [facility] Course: Date of admission: 12/09/2022 Date of discharge: 12/12/2022 Admission diagnosis: Cervical spondylotic myelopathy with myelomalacia; Severe spondylosis with stenosis C3-7; UE weakness; LE weakness; Gait instability; Neck pain Discharge diagnosis: Same Attending physician: Dr. Araiza Surgical procedures: C3-C7 ACDF and C2-T1 posterior cervical decompression and fusion Brief history: Patient is a 62-year-old female with a history of Cervical spondylotic myelopathy with myelomalacia; Severe spondylosis with stenosis C3-7; UE weakness; LE weakness; Gait instability; Neck pain. At this point patient has failed conservative treatment measures and has opted to proceed with a elective C3 to C7 ACDF andn C2 to T1 posterior cervical decompression fusion. Hospital course: Details of patient's surgery can be found in operative report. Patient tolerated the procedure well and was subsequently transported to orthopedic floor. Patient's orthopeidc and medical care was provided daily. Patient had daily laboratory tests performed for evaluation of overall blood counts. Patient had daily physical therapy to include strengthening range of motion as well as education with walker ambulation. Patient was noted to have a relatively uneventful postoperative course. Patient reported satisfactory pain control with oral pain medications by postoperative day 3. Patient showed satisfactory progress with physical therapy. Patient moved steadily through the program and had no difficulty meeting the goals by postoperative day 3. Given patient's otherwise satisfactory course and having met physical therapy goals, plan is to discharge patient home on postoperative day 3. Discharge condition/disposition: Patient will be discharged home in stable condition. Discharge medications: Instructions are given on resumption of patient's normal daily medications per primary care recommendation, in addition patient will be prescribed [place] 10 mg/325 mg; gabapentin; senna; Flexeril; Duricef. Spine Discharge and Recovery Instructions Date of Surgery: 12/09/2022 Diagnosis: Cervical spondylotic myelopathy with myelomalacia; Severe spondylosis with stenosis C3-7; UE weakness; LE weakness; Gait instability; Neck pain Procedure: C3-C7 ACDF and C2-T1 posterior cervical decompression and fusion Medications: See medication list All medication refills should be obtained through your primary care doctor or your clinic spine surgeon. Please discuss prescription refills at your follow up appointment. Do not call the hospital for medication refills. Dressing: Leave your dressing in place for a total of 5 days post operatively. Then you m ay remove your dressing and leave open to air. Keep the area clean and if not able to keep area clean, then cover with sterile gauze and tape. Showering: You may shower 3 days after your procedure allowing soap and water to run over incision. Do not scrub. Do not soak. Blot dry. Follow up: Please confirm a follow up appointment with your surgeon 3 weeks post operatively. Please make an appointment to follow up with your PCP in 1-2 weeks after surgery for evaluation 3 phase, 3-week plan POST OP WEEKS 1-3 1. Lifting/carrying/pushing/pulling limited to less than 5 pounds. 2. Do not sit for longer than 15 minutes at one time. Get up and walk around. Prolonged sitting is NOT advised. If you lay down, see if you can tolerate laying down on you front (belly side) 3. Walk for periods of 15 minutes = 1 mile but no longer; do it multiple times times each day. 4. Ice your low back after activity. POST OP WEEKS 3-6 1. Lifting limited to less than 20 pounds. 2. Do not sit for longer than 30 minutes at a time. Frequently change positions. Use a sit-to stand workstation or take frequent breaks from sitting if you have returned to work. 3. Walk for 30 minutes each day. If possible, do these three or more times a day POST OP WEEKS 6+ At your 6-week appointment we will give you a physical therapy referral to focus on a core stabilization and strengthening program. You should also work on leg & buttock strengthening, hamstring & quadriceps stretching, and continue a low i mpact aerobic activity program such as swimming, walking, or riding a stationary bicycle. During the initial 6 weeks after your surgery, you are at the highest risk of re-injuring your spine. You should generally avoid BLTs (bending, lifting and twisting combination motions) and follow the above guidelines to reduce the chance of reinjury. You can anticipate post op appointments in our office at approximately 3 weeks and 6 weeks after your surgery. INCISION CARE: If your incision is not draining you do NOT need to cover it with a dressing. Keep your incision clean, dry and intact. In most cases, we apply skin glue, biju or sutures to the incision at the time of surgery. This will be like a crust or have the appearance of a scab and will fall off in time on its own. The stitches or biju need to be removed at 3 weeks post op appointment. You may begin to shower 3 days after surgery (this allows the glue to canales well). However, please avoid scrubbing the incision site or peeling off any of the skin glue. This will ensure optimal healing of your incision. Also, during this time avoid soaking the incision area in water - this includes swimming pools, hot tubs or baths. No ointments, lotions or oils on the incision until your surgeon allows. Leave biju, sutures or glue in place. Neurological dysfunction that comes on suddenly can also be a sign of a stroke. Below some common symptoms of a stroke are listed: B - balance difficulty such as sudden onset walking or leaning to one side - NEW E - eye problem such as sudden double vision or trouble seeing on one side - NEW F - Facial weakness or numbness on one side - NEW A - Arm or leg weakness or numbness on one side - NEW S - Slurred speech or difficulty with word finding - NEW T - Time is BRAIN! Call 911 as soon as you recognize these symptoms Diet: Consume a regular diet rich in vegetables and lean protein such as chicken or fish. You should consume in a ratio of approximately 20% fats|40% carbohydrates|40%protein. Vegetables, sweet potatoes, brown rice or quinoa are examples of good carbohydrates. Chips, white bread, cookies and sweets/sugar are examples of bad carbohydrates. Limit your bad carbs, go wild with good carbs. "Life's Simple 7" Guidelines as per [place] [employer] These will help you reclaim your life after surgery and help desk engineer in your recovery, keeping in mind your restrictions. (1) Get Active. Physical activity can help people lose weight, control high blood pressure and cholesterol, feel emotionally better, and sleep better. (2) Control Cholesterol. Avoid a diet high in saturated fat, trans fat, & cholesterol. Limit whole milk & cream, ice cream, butter, egg yolks, processed meats (like sausage and hot dogs), and fatty meats. Choose healthy foods that are low in saturated fat, trans fat and cholesterol which include: Fruits and vegetables, fiber rich grain products (like whole grain pasta and brown rice), lean meat such as chicken, fish, nuts, seeds, and legumes. (3) Eat Better. Eat small portions. Shop at the grocery with a list and do n ot stray from it. Tips for a healthy diet include: Limit sodium intake to less than 1500mg daily, avoid prepackaged, processed, and fast foods, choose a diet rich in fruits, vegetables, and whole grain, high fiber foods, and limit saturated & cholesterol in your diet. (4) Manage Blood Pressure. If you have high blood pressure, you should have a cuff at home so that you can check your blood pressure regularly. Be sure you have a good cuff. An arm one is generally better than a wrist one. Bring the cuff to a doctor's appointment to validate that the measurements that your cuff are taking are accurate. Take your blood pressure twice daily when you are sitting down and relaxing. Record the numbers in a log and bring this log with you to your doctors' appointments. (5) Lose Weight if your BMI is above 25. A healthy BMI is between 19-25. To calculate Your BMI, you may use a Standard BMI Calculator on the NIH BMI website: <www.nhlbi.nih.gov/guidelines/obesity/BMI/bmicalc.htm>. Weigh oneself daily. If you are overweight, set a goal to lose weight. A pound a week loss if needed is a good target. (6) Reduce Blood Sugar. Limit foods and liquids with "added sugars." (Added sugars include sucrose, fructose, glucose, maltose, dextrose, high fructose corn syrup, corn syrup, concentrated fruit juice and honey). (7) Stop Smoking. If you smoke, quitting smoking is one of the best things that you can do for your health. Smoking increases your risk of heart attack, stroke, and peripheral vascular disease, which is a build-up of plaque in your arteries. Please discard all the cigarettes and lighters in your house. Have a plan for what you will do when you have the urge to smoke. Direct and second- hand smoke shortens your life as well as the lives of your family, friends and others around you. For your health and the health of those around you, please consider quitting! Proper Bending Body Mechanics: Maintain a wide stance with one foot slightly in front of the other. Keep your back straight. Bend utilizing the strength in your hips and knees. Do not bend at the waist. Maintain the lifted object at your waist-level close to your body. Avoid lifting weight that causes immediately pain or pain anywhere in the body afterwards. Smoking/Nicotine If there was ever one thing that you could do to increase your overall health, decrease your risk of cardiovascular problems by about 39% the second you make the choice, it is to STOP SMOKING. Your body's most instant gratification is the second you stop smoking. We have all heard the studies, read the articles but it is true, smoking is extremely bad for your overall health, and moreover it is detrimental to your bone health. Nicotine, IN ANY FORM, kills bone cells, prevents your body from healing fractures, and significantly prolongs healing after surgery. In spine surgery specifically, it increases your risk of not healing your bones to create a fusion and increases your risk of having a revision surgery due to this up to 60%. I know it is hard. I know it feels impossible. But there are ways. Take control of your life. We are here to help you through it. And when you are ready, ask us and we can direct you to help if you desire. Use the START Plan to Quit Smoking (please visit the Helpguide.org website listed below for more information): S = Set a quit date. Choose a date within the next 2 weeks, so you have enough time to prepare without losing your motivation to quit. If you mainly smoke at work, quit on the weekend, so you have a few days to adjust to the change. T = Tell family, friends, and co-workers that you plan to quit. Let your friends and family in on your plan to quit smoking and tell them you need their support and encouragement to stop. Look for a quit choco who wants to stop smoking as well. You can help each other get through the rough times. A = Anticipate and plan for the challenges you'll face while quitting. Most people who begin smoking again do so within the first 3 months. You can help yourself make it through by preparing ahead for common challenges, such as nicotine withdrawal and cigarette cravings. R = Remove cigarettes and other tobacco products from your home, car, and work. Throw away all your cigarettes (no emergency pack!), lighters, ashtrays, and matches. Wash your clothes and freshen up anything that smells like smoke. Shampoo your car, clean your drapes and carpet, and steam your furniture. T = Talk to your doctor about getting help to quit. Your doctor can prescribe medication to help with withdrawal and suggest other alternatives. If you can't see a doctor, you can get many products over the counter at your local pharmacy or grocery store, including the nicotine patch, nicotine lozenges, and nicotine gum. Resources for Quitting Smoking: <https://www.[place].gov/documents/[facility]/Quit_[place] [facility]_Resources_for_patients_313480_7.pdf> Supplementation: Take recommended dosages of Vitamin D and Calcium to help fortify your bones and help them to heal. See your health maintenance packet for dosages and recommended levels. DVT/VTE prophylaxis: You will be given compression stockings from the hospital. Wear these daily for the first two weeks after surgery. You may take them off at night. You may be prescribed a medication to help thin your blood. Take this as directed. If you are not prescribed this medication, early and frequent ambulation has been shown to be the best prophylaxis to deep vein thrombosis and sequelae related to this event. Assessment: Cervical spondylotic myelopathy with myelomalacia; Severe spondylosis with stenosis C3-7; UE weakness; LE weakness; Gait instability; Neck pain Procedures: C3-C7 ACDF and C2-T1 posterior cervical decompression and fusion Patient Condition at Discharge: Good Plan - Discharge Summary Discharge Rx Participant: Yes New Discharge Prescriptions: New Gabapentin 300 mg PO TID #30 cap cefaDROXiL [Duricef] 500 mg PO Q12HR 5 Days #10 cap amLODIPine 10 mg PO DAILY 30 Days #30 tab HYDROcodone/APAP 10-325MG [[place] 10-325] 1 - 2 tab PO Q6HR PRN #32 tab PRN Reason: Pain Cyclobenzaprine [Flexeril] 5 mg PO TID #30 tablet Sennosides/Docusate Sodium [Senna Plus 8.6-50 mg Softgel] 1 each PO DAILY #20 capsule Continue Cholecalciferol [Vitamin D3 (125 Mcg = 5000 Iu)] 250 mcg PO DAILY Psyllium Husk (with Sugar) [Metamucil Powder] 1 dose PO DAILY Collagen Powder 1 dose PO DAILY Vitamin K2 [Mk-7] 180 mcg PO DAILY Vitamin C 3 tab PO DAILY Discharge Medication List Cholecalciferol [Vitamin D3 (125 Mcg = 5000 Iu)] 250 mcg PO DAILY 12/04/22 [History] Collagen Powder 1 dose PO DAILY 12/04/22 [History] Psyllium Husk (with Sugar) [Metamucil Powder] 1 dose PO DAILY 12/04/22 [History] Vitamin C 3 tab PO DAILY 12/04/22 [History] Vitamin K2 [Mk-7] 180 mcg PO DAILY 12/04/22 [History] amLODIPine 10 mg PO DAILY 30 Days #30 tab 12/11/22 [Rx] Cyclobenzaprine [Flexeril] 5 mg PO TID #30 tablet 12/12/22 [Rx] Gabapentin 300 mg PO TID #30 cap 12/12/22 [Rx] HYDROcodone/APAP 10-325MG [[place] 10-325] 1 - 2 tab PO Q6HR PRN #32 tab 12/12/22 [Rx] Sennosides/Docusate Sodium [Senna Plus 8.6-50 mg Softgel] 1 each PO DAILY #20 capsule 12/12/22 [Rx] cefaDROXiL [Duricef] 500 mg PO Q12HR 5 Days #10 cap 12/12/22 [Rx] Follow up Appointment(s)/Referral(s): Mando Rodríguez MD [Primary Care Provider] - 1 Week Giovanni Araiza DO [Doctor of Osteopathic Medicine] - 12/24/22 10:20 am Activity/Diet/Wound Care/Special Instructions: Spine Discharge and Recovery Instructions Date of Surgery: 12/09/2022 Keep incision clean, dry, intact. May remove dressings on 12/14/2022. Okay to shower directly over incision once dressings are removed on Thursday. Diagnosis: Cervical spondylotic myelopathy with myelomalacia; Severe spondylosis with stenosis C3-7; UE weakness; LE weakness; Gait instability; Neck pain Procedure: C3-C7 ACDF and C2-T1 posterior cervical decompression and fusion Medications: See medication list All medication refills should be obtained through your primary care doctor or your clinic spine surgeon. Please discuss prescription refills at your follow up appointment. Do not call the hospital for medication refills. Dressing: Leave your dressing in place for a total of 5 days post operatively. Then you may remove your dressing and leave open to air. Keep the area clean and if not able to keep area clean, then cover with sterile gauze and tape. Showering: You may shower 3 days after your procedure allowing soap and water to run over incision. Do not scrub. Do not soak. Blot dry. Follow up: Please confirm a follow up appointment with your surgeon 3 weeks post operatively. Please make an appointment to follow up with your PCP in 1-2 weeks after surgery for evaluation 3 phase, 3-week plan POST OP WEEKS 1-3 1. Lifting/carrying/pushing/pulling limited to less than 5 pounds. 2. Do not sit for longer than 15 minutes at one time. Get up and walk around. Prolonged sitting is NOT advised. If you lay down, see if you can tolerate laying down on you front (belly side) 3. Walk for periods of 15 minutes = 1 mile but no longer; do it multiple times times each day. 4. Ice your low back after activity. POST OP WEEKS 3-6 1. Lifting limited to less than 20 pounds. 2. Do not sit for longer than 30 minutes at a time. Frequently change positions. Use a sit-to stand workstation or take frequent breaks from sitting if you have returned to work. 3. Walk for 30 minutes each day. If possible, do these three or more times a day POST OP WEEKS 6+ At your 6-week appointment we will give you a physical therapy referral to focus on a core stabilization and strengthening program. You should also work on leg & buttock strengthening, hamstring & quadriceps stretching, and continue a low impact aerobic activity program such as swimming, walking, or riding a stationary bicycle. During the initial 6 weeks after your surgery, you are at the highest risk of re-injuring your spine. You should generally avoid BLTs (bending, lifting and twisting combination motions) and follow the above guidelines to reduce the chance of reinjury. You can anticipate post op appointments in our office at approximately 3 weeks and 6 weeks after your surgery. INCISION CARE: If your incision is not draining you do NOT need to cover it with a dressing. Keep your incision clean, dry and intact. In most cases, we apply skin glue, biju or sutures to the incision at the time of surgery. This will be like a crust or have the appearance of a scab and will fall off in time on its own. The stitches or biju need to be removed at 3 weeks post op appointment. You may begin to shower 3 days after surgery (this allows the glue to canales well). However, please avoid scrubbing the incision site or peeling off any of the skin glue. This will ensure optimal healing of your incision. Also, during this time avoid soaking the incision area in water - this includes swimming pools, hot tubs or baths. No ointments, lotions or oils on the incision until your surgeon allows. Leave biju, sutures or glue in place. Neurological dysfunction that comes on suddenly can also be a sign of a stroke. Below some common symptoms of a stroke are listed: B - balance difficulty such as sudden onset walking or leaning to one side - NEW E - eye problem such as sudden double vision or trouble seeing on one side - NEW F - Facial weakness or numbness on one side - NEW A - Arm or leg weakness or numbness on one side - NEW S - Slurred speech or difficulty with word finding - NEW T - Time is BRAIN! Call 911 as soon as you recognize these symptoms Diet: Consume a regular diet rich in vegetables and lean protein such as chicken or fish. You should consume in a ratio of approximately 20% fats|40% carbohydrates|40%protein. Vegetables, sweet potatoes, brown rice or quinoa are examples of good carbohydrates. Chips, white bread, cookies and sweets/sugar are examples of bad carbohydrates. Limit your bad carbs, go wild with good carbs. "Life's Simple 7" Guidelines as per [place] [employer] These will help you reclaim your life after surgery and help desk engineer in your recov rafia, keeping in mind your restrictions. (1) Get Active. Physical activity can help people lose weight, control high blood pressure and cholesterol, feel emotionally better, and sleep better. (2) Control Cholesterol. Avoid a diet high in saturated fat, trans fat, & cholesterol. Limit whole milk & cream, ice cream, butter, egg yolks, processed meats (like sausage and hot dogs), and fatty meats. Choose healthy foods that are low in saturated fat, trans fat and cholesterol which include: Fruits and vegetables, fiber rich grain products (like whole grain pasta and brown rice), lean meat such as chicken, fish, nuts, seeds, and legumes. (3) Eat Better. Eat small portions. Shop at the grocery with a list and do not stray from it. Tips for a healthy diet include: Limit sodium intake to less than 1500mg daily, avoid prepackaged, processed, and fast foods, choose a diet rich in fruits, vegetables, and whole grain, high fiber foods, and limit saturated & cholesterol in your diet. (4) Manage Blood Pressure. If you have high blood pressure, you should have a cuff at home so that you can check your blood pressure regularly. Be sure you have a good cuff. An arm one is generally better than a wrist one. Bring the cuff to a doctor's appointment to validate that the measurements that your cuff are taking are accurate. Take your blood pressure twice daily when you are sitting down and relaxing. Record the numbers in a log and bring this log with you to your doctors' appointments. (5) Lose Weight if your BMI is above 25. A healthy BMI is between 19-25. To calculate Your BMI, you may use a Standard BMI Calculator on the NIH BMI website: <www.nhlbi.nih.gov/guidelines/obesity/BMI/bmicalc.htm>. Weigh oneself daily. If you are overweight, set a goal to lose weight. A pound a week loss if needed is a good target. (6) Reduce Blood Sugar. Limit foods and liquids with "added sugars." (Added sugars include sucrose, fructose, glucose, maltose, dextrose, high fructose corn syrup, corn syrup, concentrated fruit juice and honey). (7) Stop Smoking. If you smoke, quitting smoking is one of the best things that you can do for your health. Smoking increases your risk of heart attack, stroke, and peripheral vascular disease, which is a build-up of plaque in your arteries. Please discard all the cigarettes and lighters in your house. Have a plan for what you will do when you have the urge to smoke. Direct and second- hand smoke shortens your life as well as the lives of your family, friends and others around you. For your health and the health of those around you, please consider quitting! Proper Bending Body Mechanics: Maintain a wide stance with one foot slightly in front of the other. Keep your back straight. Bend utilizing the strength in your hips and knees. Do not bend at the waist. Maintain the lifted object at your waist-level close to your body. Avoid lifting weight that causes immediately pain or pain anywhere in the body afterwards. Smoking/Nicotine If there was ever one thing that you could do to increase your overall health, decrease your risk of cardiovascular problems by about 39% the second you make the choice, it is to STOP SMOKING. Your body's most instant gratification is the second you stop smoking. We have all heard the studies, read the articles but it is true, smoking is extremely bad for your overall health, and moreover it is detrimental to your bone health. Nicotine, IN ANY FORM, kills bone cells, prevents your body from healing fractures, and significantly prolongs healing after surgery. In spine surgery specifically, it increases your risk of not healing your bones to create a fusion and increases your risk of having a revision surgery due to this up to 60%. I know it is hard. I know it feels impossible. But there are ways. Take control of your life. We are here to help you through it. And when you are ready, ask us and we can direct you to help if you desire. Use the START Plan to Quit Smoking (please visit the Helpguide.org website listed below for more information): S = Set a quit date. Choose a date within the next 2 weeks, so you have enough time to prepare without losing your motivation to quit. If you mainly smoke at work, quit on the weekend, so you have a few days to adjust to the change. T = Tell family, friends, and co-workers that you plan to quit. Let your friends and family in on your plan to quit smoking and tell them you need their support and encouragement to stop. Look for a quit choco who wants to stop smoking as well. You can help each other get through the rough times. A = Anticipate and plan for the challenges you'll face while quitting. Most people who begin smoking again do so within the first 3 months. You can help yourself make it through by preparing ahead for common challenges, such as nicotine withdrawal and cigarette cravings. R = Remove cigarettes and other tobacco products from your home, car, and work. Throw away all your cigarettes (no emergency pack!), lighters, ashtrays, and matches. Wash your clothes and freshen up anything that smells like smoke. Shampoo your car, clean your drapes and carpet, and steam your furniture. T = Talk to your doctor about getting help to quit. Your doctor can prescribe medication to help with withdrawal and suggest other alternatives. If you can't see a doctor, you can get many products over the counter at your local pharmacy or grocery store, including the nicotine patch, nicotine lozenges, and nicotine gum. Resources for Quitting Smoking: <https://www.[place].gov/documents/[facility]/Quit_Tobacco_Resources_for_patients_313 480_7.pdf> Supplementation: Take recommended dosages of Vitamin D and Calcium to help fortify your bones and help them to heal. See your health maintenance packet for dosages and recommended levels. DVT/VTE prophylaxis: You will be given compression stockings from the hospital. Wear these daily for the first two weeks after surgery. You may take them off at night. You may be prescribed a medication to help thin your blood. Take this as directed. If you are not prescribed this medication, early and frequent ambulation has been shown to be the best prophylaxis to deep vein thrombosis and sequelae related to this event. Discharge Disposition: HOME SELF-CARE
--- NOTE | 2022-12-12 12:33 | P.PN ---
Subjective Progress Note Date: 12/12/22 Principal diagnosis: 1. Cervical spondylotic myelopathy with myelomalacia 2.Severe spondylosis with stenosis C3-7 3. UE weakness 4. LE weakness 5. Gait instability 6. Neck pain Patient was seen at bedside this morning sitting up in chair with a hard cervical collar in place. Patient says she did get up in chair. She says she is doing much better today than she was the first couple days after surgery. Patient says she is looking forward to going home today. She says her will help her out at home. Patient says she has urinated on her own daily. Patient says she has not had bowel movement yet, however, patient says she has been passing gas. Patient denies chest pain, fever, shortness breath, nausea, vomiting, change in vision, loss of bowel/bladder control. Objective - Vital Signs Vital signs: Vital Signs Temp 98.2 F 12/12/22 07:05 Pulse 80 12/12/22 08:10 Resp 14 12/12/22 08:10 BP 127/57 12/12/22 07:05 Pulse Ox 95 12/12/22 08:03 FiO2 21 12/12/22 08:03 Intake & Output 12/11/22 12/12/22 12/12/22 18:59 06:59 18:59 Output Total 810 Balance -810 Weight 71 kg Output: Drainage 10 Anterior 10 Urine 800 Uretheral (Isaac) 800 Other: Voiding Method Indwelling Catheter Toilet Toilet # Voids 3 - Exam Inspection: Hard cervical collar is in place at this time. Anterior cervical and posterior cervical dressing present with some spotting. Incisions appear to be doing well this time. Negative for any active drainage. Dressing changes at bedside this morning. New surgical dressing placed over anterior cervical incision and posterior cervical incision. [place] are well aligned at this time. Sensation: There is a dermatomal deficits to bilateral upper extremities at C4 to C5. Rest of sensation is equal, symmetric by intact throughout upper and lower extremities. Palpation: Moderate tenderness to palpation over the anterior cervical and poste rior cervical incisions. Nontender to palpation throughout rest exam. Range of motion: Patient has full range of motion bilateral upper extremities and wrist flexion/extension and elbow flexion/extension. There is limited range of motion in shoulders bilaterally in flexion/extension and abduction and external/internal rotation secondary to referred pain from the neck. Patient has full range of motion bilateral lower extremities on exam. Motor: 4/5 in all major motor groups bilateral upper extremity. 5/5 all major motor groups in bilateral lower extremities. Neurovascular status: Radial pulse intact, 2+ bilaterally. Cap refill under 3 seconds in digits upper extremities. Special tests: Negative Homans bilaterally. Negative Shaniqua bilaterally. Negative clonus bilaterally. - Labs CBC & Chem 7: 12/10/22 06:43 12/11/22 06:25 Assessment and Plan Assessment: 1. Cervical spondylotic myelopathy with myelomalacia; Severe spondylosis with stenosis C3-7; UE weakness; LE weakness; Gait instability; Neck pain Postoperative day 3 status post C3-C7 ACDF and C2-T1 posterior cervical decompression and fusion Plan: 1. Cervical spondylotic myelopathy with myelomalacia; Severe spondylosis with stenosis C3-7; UE weakness; LE weakness; Gait instability; Neck pain - C3-C7 AC DF and C2-T1 posterior cervical decompression and fusion performed 12/09/2022. Patient stable at bedside this morning; hard cervical collar in place. incisions healing well. Dressings change at bedside this morning. Continue pain medication as needed. Physical therapy daily. Discharge home today. 2. Appreciate medical management 3. Pain management - [place]; Flexeril; gabapentin 4. GI prophylaxis - senna; milk of magnesia 5. DVT prophylaxis - mechanical 6. Weightbearing as tolerated with walker. Hard cervical collar on at all times. 7. Encourage incentive spirometer use 8. Discharge planning -discharge home today Time with Patient: Less than 30
--- NOTE | 2022-12-15 08:32 | P.OP ---
Date of Procedure: 12/09/22 Preoperative Diagnosis: 1. Cervical spondylotic myelopathy 2. C3-7 Spondylosis with severe stenosis 3. UE and LE weakness 4. NEck pain Postoperative Diagnosis: 1. Cervical spondylotic myelopathy 2. C3-7 Spondylosis with severe stenosis 3. UE and LE weakness 4. NEck pain Procedure(s) Performed: Two stage same day procedure. Stage I: 1. C3-4, C4-5, C5-6 anterior cervical discectomy and fusion (88795, [id number]) 2. Insertion of biomechanical devices C3-6 (29457a1) Use of IONM Use of IO microscope Stage II: 1. C2-T1 posteriolateral stabilized fusion (90721, 58174a1) 2. Segmental instrumentation C2-T1 (03411) 3. Bilateral laminectomy, partial medial facetecomy and foraminotomy C2-C7 (51038, 76954u9) Use of IONM Implants: -Stephane [place] C x3 -[place] posterior cervical system -MagnatOs, Arthrocell, Autrograft Anesthesia: GETA Surgeon: Giovanni Araiza Marker Hand #1: Kamar Gallagher Estimated Blood Loss (ml): 200 IV fluids (ml): 1,500 Urine output (ml): 550 Pathology: none sent Condition: stable Disposition: PACU Indications for Procedure: Zena Powers is a 62 year old female presenting for evaluation of sudden onset of *UE weakness, gait instability, neck pain, radicular pain. It was my pleasure to have seen and examined Ms. Powers. In our visit today we have had a chance to go over subjective complaints, physical examination findings and treatments, including the natural course history without intervention and various interventional options. The imaging demonstrates *Severe spondylosis with stenosis, severe C3-7 with flattened cervical lordosis . On physical exam, Ms. Powers demonstrates *UE weakness, myelopathic findings including hoffmans b/l, 3/4 DTR all, unstady gait, fine motor disrutption . I explained to the patient that as her condition progresses it could cause *Continued or progressive symptoms . At this time, based on the patients imaging and physical exam, I recommend surgery in the form or a: *staged procedure Anterior C3-7 discectomy and fusion with a posterior C2-T2 decompression and fusion . I discussed the risk and benefits of this procedure at length with Ms. Powers. The patient spouseagreed to consider pursuing the procedure mentioned above. Plan: 1. * Staged procedure. I: Anterior C3-7 discectomy and fusion with a II: posterior C2-T2 decompression and fusion Description of Procedure: Stage I: C3-6 ACDF The patient was seen and examined in the preoperative area. All preoperative protocols were followed. Informed consent was obtained risks and benefits of the procedure were discussed at length. Risks including bleeding infection damage to the surrounding tissue and risk of re-operation were discussed with the patient. Risk of anesthesia up to and including was a discussed with the patient. These are outlined in the risk review. They were willing to accept these risks and all the risks of surgery. The patient was given a we ight-based dose of antibiotics in the form of 2 g Ancef. The patient was seen and evaluated by the anesthesia team who deemed them fit for surgery. The site was marked, the patient was willing to proceed with the procedure. The patient was transferred to the operative suite by the Department of anesthesia. They were then drifted off to sleep by the department anesthesia and GETA was performed. The patient tolerated this well. Isaac catheter was placed by nursing staff, a-traumatically. Once confirmation of lines and ventilation the patient was transferred to a Supine Refugio table very c arefully. All bony prominences including wrists, elbows, axilla, chest, hips, and thighs, and feet were padded very well. Special attention was paid to the genitalia, and these were padded accordingly. SCDs were placed on bilateral lower extremities and were connected. Arms were well padded and placed at their side thumbs up. Once in position, again we confirmed good ventilation capabilities and that lines were running appropriately. The patients Cervical spine was then exposed. 1010s were placed outlining the incision site. Standard alcohol was used to clean the incision site and allowed to dry. C-arm was used to bio-bindu the patient and confirm level for incision which was marked with a skin marker. Operative briefing was performed with all teams and everyone in agreement to proceed. The patient was then prepped and draped in a normal sterile fashion. Timeout was then performed, and all parties agreed with the procedure to be performed. Transverse skin incision was then made on the right side of the patients neck 3 cm and dissection taken down to the platysma which was split transversely. Sub platysma flap was made, and interval identified between SCM and medial stru ctures. Omohyoid was visualized and protected. Blunt dissection taken down to the anterior cervical facia which was identified. Blunt prob was then placed and lateral image taken which confirmed levels for operation. These levels were then marked with a bovi. Subperiosteal dissection of the longissimus muscles were then done over these levels identifying uncovertebral joints bilaterally. Retractor was then placed deep to these muscles and held in place with a bed arm. Starting at C5-6, Spooner pins were placed into C5 and 6 and gentle distraction taken out over the levels. Ivone rongure used to remove disc material. Operating microscope brought in for visualization. Complete discectomy performed at this level with curette, rongure and pituitary. High speed carin used to remove osteophytes anteriorly and posteriorly until PLL was identified. 6-0 up curette then used to identify the canal and resect the PLL. 2-0 and 3-0 Kerrison used then to remove PLL and disc herniation and performed b/l foraminotomies. Once good decompression accomplished, meticulous hemostasis was performed. Sizers were then placed under lateral fluoroscopy until the desired height and lordosis. Cage was then selected, packed with autograft and allograft and placed under lateral imaging. Once in good position it was tested and stable. Motors run before and after cage placement were stable. The wound was irrigated, and autograft placed lateral to the cage anteriorly for fusion. Spooner pin was then removed from C6 and placed into C4. Gentle distraction taken out over C4-5 now. Complete discectomy done at C4-5 as described including decompression, b/l foraminotomies and PLL resection. Burring of endplates was minimal, osteophytes removed as described. Spacers were then sized and placed under lateral imaging. Cage selected, packed with graft and placed under lateral images. Once in position, meticulous hemostasis performed, and motors remained stable before and after cage placement. AP image confirmed good placement of cages. Wound was irrigated. Spooner pin was then removed from C5 and placed into C3. Gentle distraction taken out over C3-4 now. Complete discectomy done at C3-4 as described including decompression, b/l foraminotomies and PLL resection. Burring of endplates was minimal, osteophytes removed as described. Spacers were then sized and placed under lateral imaging. Cage selected, packed with graft and placed under lateral images. Once in position, meticulous hemostasis performed, and motors remained stable before and after cage placement. AP image confirmed good placement of cages. Wound was irrigated. Spooner pin was removed and bone wax placed in their void. C6-7 was inspected once again, but it was autofused and was not mobile at this time anteriorly. Her alignment had improved greatly with the levels done and review of her MRI showed that stenosis can be relieved from the posterior aspect. After each cage placement, screws were placed through the cage with good purchase using lateral imaging. The screws were placed inferiorly and superiorly and locked. All locking mechanisms set, and all screws had good purchase. Final AP and lateral images taken confirmed good placement of hardware and good reduction and mosque of height. The wound was then irrigated copiously with NSS. Surgicel placed deep in the wound. A deep drain placed out a separate incision and sewed into place. Layered closure then performed with 3-0 Vicryl in the platysma and sub-Q tissue. 4-0 Strata fix in the subcuticular tissue. The wound was then cleaned, and dried and skin glue placed. Once glue dried an Opifoam was placed. The patient was then transferred back to their hospital bed a-traumatically. The drain continued to hold suction. They were placed in a soft collar. They were then awakened by the department of anesthesia having tolerated the procedure well without complications. Stage II: Posterior C2-T1 Description of Procedure: The patient was seen and examined in the preoperative area. All preoperative protocols were followed. Informed consent was obtained risks and benefits of the procedure were discussed at length. Risks including bleeding infection damage to the surrounding tissue and risk of reoperation were discussed with the patient. Risk of anesthesia up to and including was a discussed with the patient. These are outlined in the risk review. They were willing to accept these risks and all of the risks of surgery. The patient was given a weight- based dose of antibiotics in the form of 2 g Ancef. The patient was seen and evaluated by the anesthesia team who deemed them fit for surgery. The site was marked, the patient was willing to proceed with the procedure. The patient was transferred to the operative suite by the Department of anesthesia. They were then drifted off to sleep by the department anesthesia and GETA was performed. The patient tolerated this well. pre-positioning motors were obtained.Isaac in place from the floor. Once confirmation of lines and ventilation Walker head clamp was placed on the patient and secured and the patient was transferred to a [prone Refugio table very carefully] with the Walker head piece assembler the head was secured and placed into an optimal position x- ray confirmed this position. Post-positioning motors remained stable. All bony prominences including wrists, elbows, axilla, chest, hips, and thighs, and feet were padded very well. Special attention was paid to the genitalia and these were padded accordingly. SCDs were placed on bilateral lower extremities and were connected. Arms were well padded and placed tucked at his side thumbs down. Shoulders were gently taped down to the table.. Once in position, again we confirmed good ventilation capabilities and that lines were running appropriately. The patient's posterior cervical spine was then exposed. 1010s were placed outlining the incision site. Standard alcohol was used to clean the incision site and allowed to dry. C-arm was used to biomark the patient and confirm level for incision which was marked with a skin marker. Operative briefing was performed with all teams and everyone in agreement to proceed. The patient was then prepped and draped in a normal sterile fashion. Timeout was then performed and all parties were in agreement with the procedure to be performed. Midline skin incision made over the previously biomarked area and dissection taken down midline to the SP of C2-T1. Subperiosteal dissection taken out over the lamina and lateral masses of C2-C7 and TVP of T1. Once exposure complete, wound was irrigated and c arm brought in for imaging. A penfield 4 was used to bluntly dissect the medial border of C2 pedicle and placed for guidance. C arm used and carin hole made for starting point. C2 pedicle was then drilled in 2mm increments to 20 mm using a ball tip feeler in between each drill session to make sure within the 4 villa with a good bottom. once this was accomplished a screw was selected and placed under lateral fluoroscopic guidance. Screw had good purchase. This was then repeated on the contralateral side. AP confirmed good placement of both screws. We then proceeded to the T1 screws bilaterally carin was used to remove the facet joint of C7 and to create a starting point for T1. Pedicle finder was then passed into T1 and imaging taken to confirm placement this was then removed and a tap placed ball-tipped probe was then placed and 4 villa of pedicle fell with good bottom. Screw was then measured and placed into T1. This is repeated on the contralateral side. The wound was then irrigated. Lateral mass screws were then drilled to 14 mm and placed at ea ch level. Each had a good bite. Rods were then sized and selected and cut to length. They were bent accordingly and lordosis. There is secured into C2 bilaterally and then sequentially her diet reduced into T1. All set screws were placed and were then final tightened and the position. Laminectomy was then performed using Ronjair followed by carin bilateral laminotomies and laminectomy was performed using high-speed bur Kerrison Ronjair and up-biting curette. Motors were run before and after decompression and they remain stable. Good pulsations of the cord were noted after decompression. The wound was then copiously irrigated with 3 L of Ancef irrigation followed by 3 L of gentamicin irrigation followed by 3 L of normal sterile saline. Facet joints were drilled at each level to allow for fusion Surgicel was placed over the dura. MagnetOs were placed in the posterior lateral gutters along with Amelia and DBM. This was impacted into position for fusion. 2 g of powdered bank was not placed deep within the wound and a deep drain was placed. A cross-link was placed and final tightened. We then proceeded with layered closure first in the deep fascia with #1 PDS then in the middle fascia with 0 Vicryl superficial fascia was closed with 2-0 Vicryl and skin closed with skin biju. The wound edges approximated very well. The wound was then cleaned and dressed sterilely with an operative foam dressing 4 x 4 and Tegaderm. The drain had good suction. The patient was placed in a hard cervical collar. The patient was transferred back to their hospital bed atraumatically. Walker head clamp was removed and pin sites were clear. [Drain continued to hold suction and were in good position]. Patient was then awakened and extubated by the department of anesthesia having tolerated the procedure very well with no complications. They were transferred to the postoperative care unit in stable condition.
== END 2022-12-12 14:31 | disposition home or self-care (01) | DRG 454 ==
LOC: 2ORMAIN 05:36 → 4SSUR 15:03
PROVIDERS: ADMIT Orthopaedic Surgery; ATTEND Orthopaedic Surgery
PROC: 0RT30ZZ Resection of Cervical Vertebral Disc, Open Approach (ICD-10-PCS; 2022-12-09)
PROC: 00NW0ZZ Release Cervical Spinal Cord, Open Approach (ICD-10-PCS; 2022-12-09)
PROC: 0RG40AJ Fusion of Cervicothoracic Vertebral Joint with Interbody Fusion Device, Posterior Approach, Anterior Column, Open Approach (ICD-10-PCS; 2022-12-09)
PROC: 0RG20A0 Fusion of 2 or more Cervical Vertebral Joints with Interbody Fusion Device, Anterior Approach, Anterior Column, Open Approach (ICD-10-PCS; principal; 2022-12-09 07:45)
PROC: 0RG2071 Fusion of 2 or more Cervical Vertebral Joints with Autologous Tissue Substitute, Posterior Approach, Posterior Column, Open Approach (ICD-10-PCS; 2022-12-09 07:45)
DX: M47.12 Other spondylosis with myelopathy, cervical region (principal); E87.1 Hypo-osmolality and hyponatremia; G95.89 Other specified diseases of spinal cord; J44.9 Chronic obstructive pulmonary disease, unspecified; I10 Essential (primary) hypertension; M48.02 Spinal stenosis, cervical region; R26.89 Other abnormalities of gait and mobility; M25.78 Osteophyte, vertebrae; E78.5 Hyperlipidemia, unspecified; F17.210 Nicotine dependence, cigarettes, uncomplicated; R15.9 Full incontinence of feces; K59.00 Constipation, unspecified; R33.9 Retention of urine, unspecified; K58.9 Irritable bowel syndrome, unspecified; G47.9 Sleep disorder, unspecified; M50.121 Cervical disc disorder at C4-C5 level with radiculopathy; K59.89 Other specified functional intestinal disorders; N39.498 Other specified urinary incontinence; E86.1 Hypovolemia; E87.6 Hypokalemia; R11.2 Nausea with vomiting, unspecified; M47.22 Other spondylosis with radiculopathy, cervical region; Z91.041 Radiographic dye allergy status
CPT/HCPCS: 72040; 72125; 80048; 85025; 86850; 86900; 86901; 94760

== ENCOUNTER → 2023-01-21 | Outpatient (CLI) | payer BC | END | disposition home or self-care (01) | LOC: LABPAT 14:44 | PROVIDERS: ATTEND Orthopaedic Surgery | DX: Z01.812 Encounter for preprocedural laboratory examination (principal); Z22.322 Carrier or suspected carrier of Methicillin resistant Staphylococcus aureus | CPT/HCPCS: 80048; 85025; 85610; 86850; 86900; 86901; 87070 ==

== ENCOUNTER → 2023-01-30 | Outpatient (CLI) | payer BC ==
[2023-01-30 16:08] LABS: Basophils # (A) 0.04 X 10*3/uL (0.00-0.10); Basophils % (A) 0.8 %; Eosinophils # (A) 0.05 X 10*3/uL (0.04-0.35); Eosinophils % (A) 0.9 %; HCT 41.6 % (37.2-46.3); HGB 14.1 d/dL (12.0-15.0); Lymphocytes # (A) 1.23 X 10*3/uL (0.90-5.00); Lymphocytes % (A) 23.1 %; MCH 31.8 pg (27.0-32.0); MCHC 33.9 d/dL (32.0-37.0); MCV 93.7 FL (80.0-97.0); Mean Platelet Volume 9.2 FL (9.5-12.2); Monocytes # (A) 0.44 X 10*3/uL (0.20-1.00); Monocytes % (A) 8.3 %; NRBC Per 100 WBC 0 X 10*3/uL (0.00-0.01); Neutrophils # (A) 3.55 X 10*3/uL (1.80-7.70); Neutrophils % (A) 66.7 %; Platelet Count 290 X 10*3/uL (140-440); RBC 4.44 X 10*6/uL (4.10-5.20); RDW 12.7 % (11.5-14.5); WBC 5.32 X 10*3/uL (4.50-10.00)
[2023-01-30 17:02] LABS: INR 0.95 sec (0.93-1.11); Prothrombin Time 10.8 sec (9.9-11.9)
[2023-01-30 17:15] LABS: BUN/Creat Ratio 16.57 Ratio (12.00-20.00); Blood Urea Nitrogen 11.6 mg/dL (9.0-27.0); Glucose 101 mg/dL (70-110)
[2023-01-30 17:16] LABS: Calcium 9.4 mg/dL (8.7-10.3); Carbon Dioxide 25.8 mmol/L (21.6-31.8); Chloride 102 mmol/L (96-109); Potassium 4.2 mmol/L (3.5-5.5); Sodium 139 mmol/L (135-145)
== END | disposition home or self-care (01) ==
LOC: LABPAT 11:38
PROVIDERS: ATTEND Orthopaedic Surgery
DX: Z01.812 Encounter for preprocedural laboratory examination (principal); T84.216A Breakdown (mechanical) of internal fixation device of vertebrae, initial encounter; Y82.9 Unspecified medical devices associated with adverse incidents
CPT/HCPCS: 80048; 85025; 85610

== ENCOUNTER 2023-02-02 06:29 | Inpatient (IN) | payer BC ==
[2023-01-30 11:11] VITALS: BMI 21.9
[~2023-02-02 06:29] MED LIST changes: +MIDAZOLAM 2 MG/2 ML VIAL IV PRN
[2023-02-02] MEDS: LACTATED RINGERS 1,000 ML IV SCH (07:26)
[2023-02-02] MEDS ORDERED: DEXAMETHASONE SOD PHOSPHATE 4 MG/ML 1 ML VIAL IVP ONE (07:38)
--- NOTE | 2023-02-02 07:54 | P.HPOR ---
History of Present Illness H&P Date: 01/21/23 [facility] H&P D:Date: 12/03/22 : 04:56pm .T:Title: *Allergies: Age: 62 year Height: 5'6" Weight: 145 lbs BP:/ BMI: 23.40 kg/m2 Occupation: Unemployed VAS: 10 CHIEF COMPLAINT: Cervical numbness DOI: x1 year DOS: n/a Duration of current treatment regiment: >6 months HISTORY: Xrays Brought xrays from outside facility which were reviewed. New xrays taken in office Trauma or injury No Work-Related No Pain description burning. Location posterior Patient notes that their pain radiates to bilateral upper extremities Activity Modification yes greater than 12 weeks without relief Hand Dominance left TREATMENTS COMPLETED: 6 weeks of PT completed? Month and Year of last PT date? No Physician directed home exercise completed? No Medications No List: Motrin, Tylenol, Medrol, Flexeril greater than 3 weeks without relief Alternative interventions Chiropractic: yes Massage therapy: yes R.I.C.E: yes Brace: No Injections No RFA: No SUBJECTIVE: Ms. Powers presents to the office for a post op evaluation of her cervical spine. Yesterday she states she was reaching up to tighten her hair tie with both of her arms and she felt a large pop in her neck and then pain. She took tylenol which took the edge off but it has not gotten better. She presents today 6 weeks s/p her cervical fusion and has been doing very well with recovery until this happened. She states she was getting eager for PT but now she is in intense pain and is worried. Denies any f/c/sob/cp. Denies any other sx. Arms are feeling better each day and getting stronger. Xray reviewed and stated below. she has had a hardware failure at T1. The patients' past social, medical, family, surgical history, as well as review of systems, have been reviewed. Please refer to the Neurosurgery History and Physical form that has been scanned in to our electronic medical record system. 14 points review of systems completed and as stated in HPI, all other systems reviewed are negative. P3 Social History: .CE:Clinical Elements:Clinical Elements: Smoking:Former Smoker >5 yrs .CE:Clinical Elements:Clinical Elements: Smoking Amount: 1 PPD .CE:Clinical Elements:Clinical Elements: Alcohol: occasional alcohol P3 .CE:Clinical Elements:Clinical Elements: Alcohol Amount: 1-2 drinks/wk P3 Family History: Reviewed, see appropriate section of the chart for details. P2 Past Medical History: Reviewed, see appropriate section of the chart for details. Current Medications: none P1 PHYSICAL EXAMINATION: General: Awake, alert, appropriate for age, in no acute distress. HEENT: No unusual neck masses around region of lateral neck triangle, thyroid, supraclavicular groove Heart: Regular rate and rhythm, normal S1, S2 and no murmur/gallop. Lungs: Clear to auscultation bilaterally with no use of accessory muscles. Extremities: Skin warm and dry without acute lesions, coloration, temperature, skin intact, no tenderness or erythema Integument: Hairy patches: ABSENT Dorsal skin dimples: ABSENT Cafe au lait spots: ABSENT Surgical incisions: n/a Palpation: Please see Pain drawing on Intake sheet for further detail. Midline spinal tenderness: No E6 Cervical Tenderness: Yes E6 Paralumbar tenderness: No E6 Parathoracic tenderness: No E6 Buttocks tenderness: No E6 Sacroilliac Tenderness: No POSTURAL and MUSCULO-SKELETAL EVALUATION: Coronal Balance: NEUTRAL Recumbent testing: Patient is able to lay flat on back Sagittal Balance: NEUTRAL Shoulder Profile: LEVEL Pelvic Girdle: LEVEL Neck ROM: RESTRICTED Lumbar ROM: UNRESTRICTED Shoulder ROM: Symmetrical Hip ROM: Symmetrical Knee ROM: Symmetrical Hands: Normal appearance, symmetrical Feet: Normal appearance, Symmetrical VASCULAR STATUS : LEFT RIGHT Wrist Pulses INTACT INTACT Pedal Pulses (Dors. pedis & post.tibialis) INTACT INTACT Color NORMAL NORMAL Edema Absent Absent NEUROLOGIC EXAMINATION: Mental Status:Awake and alert, fully oriented, with normal attention, concentration and memory, and fluent, appropriate speech. Cranial Nerves: I: Olfactory not tested. II: Visual acuity normal, no visual field deficit noted with confrontation. III,IV: Normal pupillary reflexes & intact extraocular movements without nystagmus. V,: Intact symmetrical facial sensation. VII: Intact symmetrical facial motor movement VIII: Hearing intact. IX,X: Intact gag, swallow, & normal voice. XI: Sternocleidomastoid, trapezius function intact. XII: Tongue midline with normal movements. L'hermitte's Sign: Negative / absent Spurling'Sign: Absent bilaterally. Cubital percussion test: Absent bilaterally. Rome-Tinel sign - Carpal region: Absent bilaterally. Straight Leg Raising: Absent bilaterally. Crossed straight leg raise: negative O8 MOTOR EXAM (0-5/5, N/T Muscle appearance: Symmetrical, without signs of atrophy or dystrophy UPPER EXTREMITY RIGHT LEFT Shoulder Abduction 4+/5 4+/5 Biceps 4+/5 4+/5 Triceps 4+/5 4+/5 Wrist Extension 4+/5 4+/5 Hand Intrnsics 4+/5 4+/5 Sourcing Associate 4+/5 4+/5 Showing good improvement with surgery. Hand and finger dexterity intact bilaterally? yes Disdiadochokinesis examination negative bilaterally? yes LOWER EXTREMITY RIGHT LEFT Hip Flexion 5/5 5/5 Knee Extension 5/5 4/5 Knee Flexion 5/5 5/5 Dorsiflexion 5/5 5/5 Plantarflexion 4/5 5/5 EHL 5/5 5/5 FHL 5/5 5/5 Toe heel walk / heel-toe walk intact while maintaining satisfactory balance? yes Squatting/straightening w/o assistance to a min of 60 degree knee flexion? yes Single leg stance: intact Trendelenburg sign negative bilaterally REFLEXES(0-4/2, NT)Upper ExtremityLower Extremity Right 3 2 Left 3 2 Pathological Reflexes RIGHT LEFT Rome's Present Present Clonus Absent Absent Babinski Absent Absent Sensory system (0-4, N/T) Test type RU MIKE RL LL Joint-Position 1 1 2 2 Vibration 1 1 2 2 Pain & LT sense 1 1 2 2 Dermatomal Deficit: C4-C5 C4-C5 None None Gait and Functional Evaluation: Ambulatory aids: Independent Romberg's test: Intact bilaterally Steady Gait RADIOGRAPHIC STUDIES: XRay Cervical multiview (Lateral, Flexion, Extension, AP, Oblique) 6 views taken at [facility] on 01/20/23: B/L T1 screw failure at the tulip head/shaft interface. Rods still attached. C2-6 screws and rods in stable position without evidence of failure. No severe alignment changes, but increased kyphosis at the CT junction due to failure. No other fractures noted. XRay Cervical multiview (Lateral, Flexion, Extension, AP, Oblique) 6 views taken at [facility] on 10/13/22: Severe spondylitic and degenerative changes with straightening of the normal lordosis. Complete disc collapse from C2-T1. Severe bilateral foraminal stenosis C3-C7. Vertebral body heights are preserved. No subluxation between flexion and extension films. No acute osseous abnormalities. MRI scancompleted at Outside facility from 09[facility]23/[facility]: Impression: 1. C3-C4: Moderate disc height loss and dislocation. Moderate facet hypertrophy. Diffuse circumferential bulge, eccentric to the left. Mild right and moderate left neural foraminal narrowing. Moderate facet hypertrophy. Moderate narrowing of the central canal is 7.5 mm. 2. C4-C5: Moderate to severe disc height loss and desiccation. Diffuse circumferential bulge with moderate facet hypertrophy and uncovertebral arthopathy. Moderately severe narrowing of the central canal to 6 mm. Moderate to severe bilateral neural foraminal narrowing. Again underlying signal abnormality is seen within the cord concerning for myelomalacia. 3. C5-C6: Moderate to severe disc height loss with desiccation. Broad based disc osteophyte complex, eccentric to the left. Mild right and moderate to severe left neural foraminal narrowing. Moderate to severe narrowing of the central canal to 6 mm. Facet hypertrophy, uncovertebral arthropathy. 4. C6 to C7: Moderate to severe disc height loss and desiccation. Diffuse circum-[place] bulge with mild right and moderate left neural foraminal n arrowing. Facet hypertrophy, uncovertebral arthropathy. Mild narrowing of the central canal. IMPRESSION: It was my pleasure to have seen and examined Zena. I reviewed the patient's clinical syndrome, physical findings, and imaging studies during the appointment today. It is my impression that the patient has a diagnosis of. 1. Hardware failure T1 b/l screws 2. 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 I outlined the natural course history without intervention and various interventional options. PLAN: Based on my findings I suggest the following course of action: I discussed treatment options with the patient, including operative and non- operative options, and they have elected to proceed with the following surgical procedure: Revision posterior C2-T2 decompression fusion for hardware failure The indications, risks, benefits, and alternatives to surgery were discussed wi th the patient and family at length. Specifically but not limited to the risks of infection, stiffness, recurrence of symptoms, need for revision surgery, local numbness, neurovascular injury, and blood clots were discussed. The patient's questions were answered. The decision to proceed was made. Consent will be obtained for the procedure. -Ambulate daily -Take medications as directed -Ice and rest for pain and swelling control. Follow- up: Post op Surgical Procedure Risk Review Zena Powers is a 62 year old female presenting for evaluation of sudden onset of *UE weakness, gait instability, neck pain, radicular pain. It was my pleasure to have seen and examined Ms. Powers. In our visit today we have had a chance to go over subjective complaints, physical examination findings and treatments, including the natural course history without intervention and various interventional options. The imaging demonstrates *Severe spondylosis with stenosis, severe C3-7 with flattened cervical lordosis . On physical exam, Ms. Powers demonstrates *UE weakness, m yelopathic findings including hoffmans b/l, 3/4 DTR all, unstady gait, fine motor disrutption . I explained to the patient that as her condition progresses it could cause *Continued or progressive symptoms . At this time, based on the patients imaging and physical exam, I recommend surgery in the form or a: * Revision posterior C2-T2 decompression fusion for hardware failure. I discussed the risk and benefits of this procedure at length with Ms. Powers. The patient spouseagreed to consider pursuing the procedure mentioned above. Plan: 1. * Revision posterior C2-T2 decompression fusion for hardware failure 2. * Follow up with PCP for surgical clearance 3. * Review of surgical risks and benefits as well as an educational packet on the proposed surgical procedure. 4. DEL Risks: All surgical procedures come with inherent risks, including those related to positioning, anesthesia, intraoperative findings, and postoperative complications. It is important to understand that surgery does not come with any guarantee of a successful outcome as complications and adverse events are always possible. The patient was given a handout in office today discussing the surgical procedure and risks associated with the intervention, both of which were discussed with the patient. These risks include but are not limited to the following: ? Experiencing same, different or even worse symptoms in back, neck, arms, or legs compared to before surgery. ? Requiring further surgery or other forms of treatment presently or at some time in the future at same or other levels of the intended spine surgery. ? On an extreme but fortunately relatively rare basis severe complication such as blindness, stroke, heart attack, temporary and/or permanent nerve injury, paralysis, coma, or may occur, sometimes without known explanation. ? Surgical complications may include but are not limited to risk of infection, fluid accumulation in the surgical dissection site, including a seroma or hematoma, that requires additional surgery, wound drainage, bleeding, new numbness or weakness, vision changes/loss, spinal fluid leakage, non-healing and/or infected incision, headaches, difficulty or inability to swallow, hoarseness, hemopneumothorax, pneumothorax, impotence, retrograde ejaculation, vaginal dryness; injury to nerves, spinal cord, blood vessels, lymphatics or other vital organs (i.e., bowel injury, injury to the great vessels); heterotopic bone formation; complications related to the hardware such as screws, rods, cages including misplaced hardware, device failure, instrumentation at the wrong spine level, hardware fracture/breakage, or hardware loosening; vertebral failure of the spinal column above or below the newly placed hardware; retained surgical instrumentations or devices and the need for further surgery. ? Medical risks of the planned spine surgery include but are not limited to generalized Infections to the whole body or local areas outside of the surgical site (sepsis), heart attack, bleeding, anaphylaxis, meningitis, seizure, epilepsy, hearing loss, burn chase, laceration of the head or other areas of the body, bruising, hypersensitivity of the skin, bladder over distension; allergic reaction; shoulder injury related to positioning; fat, blood and air clots to other areas of the body like heart, lungs, brain; failure of internal organs such as lungs, kidneys, liver and excessive bleeding. If blood transfusions are necessary, note that transfusions may cause intolerance reactions such as anaphylaxis or other complex reactions. Despite best efforts, the results of spine surgery might not heal in terms of bone, soft tissues such as skin, fascia, ligaments, and joints. Additionally, in order to achieve best possible results, spine surgery may be carried out beyond the initially planned levels and involve decompression, fusion including insertion of hardware at levels other than the original intended area of surgical interest change some portions of the procedure in order to ensure the best possible outcomes. With spine surgery and spinal fusion, there are different off label uses of instrumentation (devices, implants and hardware) as well as biological substances (bone morphogenic proteins, demineralized bone matrix) as well as using extra bone from allograft sources (i.e. cadaver bone) or autograft (iliac crest bone, ribs, or the spine itself). The patient has been given information about these practices and their inherent risks and benefits. [facility] Physician Assistants are medically trained surgical providers who function in the outpatient, inpatient, and operating room setting under the direct supervision of the attending surgeon.They assist in the operating room with direct supervision of the attending surgeons. The patient has had a chance to review all the listed information, has been given print outs detailing this information, and has had all his/her questions answered to their satisfaction. It was my pleasure to have seen and examined Ms. Powers. In our visit today we have had a chance to go over my understanding of our patient's current condition, the natural course history without intervention and various interventional options. Questions were invited and answered, and the patient wishes to proceed as outlined above. I have seen and examined the patient for 25 minutes and we have spent more than 50% of the time in repeat and detailed counseling about the patient's condition, its natural course history with out and as much as can be predicted with surgery and re-review of various surgical treatment options. In conclusion,Ms. Powers and her spouse/partner requested we proceed with the above suggested surgery and are willing to accept risks and limitations of the suggested surgery as nature of the disease process and our best attempts at treatment for the condition. Thank you again for allowing us to be part of your patient's care. Please don't hesitate to contact me if you have any further questions. Signed and authenticated by: [facility] [address] [place] [address] Past Medical History Past Medical History: COPD, Eye Disorder, Hyperlipidemia, Hypertension, Osteoarthritis (OA) Additional Past Medical History / Comment(s): Glaucoma leodan eyes-no drops History of Any Multi-Drug Resistant Organisms: None Reported Past Surgical History: Cholecystectomy, Hysterectomy, Orthopedic Surgery Additional Past Surgical History / Comment(s): C2-T2 laminectomy/fusion OR on 12-09-22, Right wrist carpal tunnel surgery, right knee surgery x3,left knee surgery,eye lid surgery Past Anesthesia/Blood Transfusion Reactions: No Reported Reaction, Postoperative Nausea & Vomiting (PONV) Additional Past Anesthesia/Blood Transfusion Reaction / Comment(s): no hx blood transfusion Past Psychological History: No Psychological Hx Reported Smoking Status: Current every day smoker Past Alcohol Use History: Occasional Additional Past Alcohol Use History / Comment(s): Smokes 1 ppd since age 15. Past Drug Use History: None Reported - Past Family History Sister(s) Family Medical History: No Reported History Medications and Allergies Home Medications Medication Instructions Recorded Confirmed Type Cholecalciferol [Vitamin D3 (125 250 mcg PO DAILY 12/04/22 01/30/23 History Mcg = 5000 Iu)] Collagen Powder 1 dose PO DAILY 12/04/22 01/30/23 History Psyllium Husk (with Sugar) 1 dose PO DAILY 12/04/22 01/30/23 History [Metamucil Powder] Vitamin C 3 tab PO DAILY 12/04/22 01/30/23 History Vitamin K2 [Mk-7] 180 mcg PO DAILY 12/04/22 01/30/23 History amLODIPine 10 mg PO QAM 01/23/23 02/02/23 History Acetaminophen Tab [Tylenol] 1,000 mg PO Q6HR PRN 02/02/23 02/02/23 History Allergies Allergy/AdvReac Type Severity Reaction Status Date / Time gabapentin AdvReac Hallucinati Verified 01/30/23 11:01 ons iodine IV Allergy Vomiting Uncoded 01/30/23 11:01 Physical Examination Osteopathic Statement: *. No significant issues noted on an osteopathic structural exam other than those noted in the History and Physical/Consult.
[2023-02-02] MEDS ORDERED: NEOSTIGMINE 1 MG/ML 10 ML VIAL ONE (08:26)
[2023-02-02] MEDS ORDERED: SUCCINYLCHOLINE CHLORIDE 200 MG/10 ML VIAL IV ONE (08:26)
[2023-02-02] MEDS ORDERED: PROPOFOL 10 MG/ML 20 ML VIAL IV ONE (08:26)
[2023-02-02] MEDS ORDERED: TRANEXAMIC 1,000 MG/100ML-NACL PREMIX BAG ONE (08:26)
[2023-02-02] MEDS ORDERED: fentaNYL (PF) 50 MCG/ML 2 ML AMP ONE (08:26)
[2023-02-02] MEDS ORDERED: MIDAZOLAM 2 MG/2 ML VIAL ONE (08:26)
[2023-02-02] MEDS ORDERED: GLYCOPYRROLATE 0.2 MG/ML 2 ML VIAL ONE (08:26)
[2023-02-02] MEDS ORDERED: KETAMINE 10 MG/ML 20 ML VIAL ONE (08:26)
[2023-02-02] MEDS ORDERED: ROCURONIUM 10 MG/ML (5 ML VIAL) IV ONE (08:26)
[2023-02-02] MEDS ORDERED: LIDOCAINE 2% INJ 20 MG/ML (2 ML VIAL) ONE (08:26)
[2023-02-02] MEDS ORDERED: ePHEDrine 50 MG/ML 1 ML VIAL ONE (08:26)
[2023-02-02] MEDS ORDERED: GELATIN SPONGE,ABSORB (LARGE) 1 EACH SPONGE TOPICAL ONE (08:31)
[2023-02-02] MEDS ORDERED: THROMBIN (BOVINE) 5,000 UNIT VIAL TOPICAL ONE (08:32)
[2023-02-02] MEDS ORDERED: ceFAZolin 3,000 MG in SODIUM CHLORIDE 0.9% IRRIGATIO 3,000 ML IRRIGATION ONE (09:22)
[2023-02-02] MEDS ORDERED: GENTAMICIN 80 MG in SODIUM CHLORIDE 0.9% IRRIGATIO 3,000 ML IRRIGATION ONE (09:23)
[2023-02-02] MEDS: HYDROmorphone 0.5 MG/0.5 ML SYRINGE IVP PRN ×2 (11:18→12:04)
--- NOTE | 2023-02-02 11:18 | P.OP ---
Date of Procedure: 02/02/23 Preoperative Diagnosis: 1. HARDWARE FAILURE T1 B/L S/P 360 CERVICAL FUSION WITH C2-T1 DECOMPRESSION FUSION 2. NECK PAIN 3. UE RADICULOPATHY, IMPROVING Postoperative Diagnosis: 1. HARDWARE FAILURE T1 B/L S/P 360 CERVICAL FUSION WITH C2-T1 DECOMPRESSION FUSION 2. NECK PAIN 3. UE RADICULOPATHY, IMPROVING Procedure(s) Performed: 1. REVISION C2-T2 POSTERIOLATERAL STABILIZED FUSION 2. REMOVAL OF BROKEN T1 SCREWS 3. EXPLORATION OF FUSION C2-T1 4. INSTRUMENTATION C2-T2 WITH NEW T1-2 POSTERIOLATERAL FUSION Implants: -MISAEL POSTERIOR CERVICAL SYSTEM -[employer], AUTOGRAFT Anesthesia: GETA Surgeon: Giovanni Araiza Estimated Blood Loss (ml): 150 IV fluids (ml): 1,500 Urine output (ml): 250 Pathology: none sent Condition: stable Disposition: PACU Indications for Procedure: Zena Powers is a 62 year old female presenting for evaluation of sudden onset of *UE weakness, gait instability, neck pain, radicular pain. hardware failure noted on new xrays with increased neck pain. It was my pleasure to have seen and examined Ms. Powers. In our visit today we have had a chance to go over subjective complaints, physical examination findings and treatments, including the natural course history without intervention and various interventional options. The imaging demonstrates *Severe spondylosis with stenosis, severe C3-7 with flattened cervical lordosis failed T1 screws b/l . On physical exam, Ms. Powers demonstrates *UE weakness, myelopathic findings including hoffmans b/l, 3/4 DTR all, unstady gait, fine motor disrutption . I explained to the patient that as her condition progresses it could cause *Continued or progressive symptoms . At this time, based on the patients imaging and physical exam, I recommend surgery in the form or a: * Revision posterior C2-T2 decompression fusion for hardware failure. I discussed the risk and benefits of this procedure at length with Ms. Powers. The patient spouseagreed to consider pursuing the procedure mentioned above. Plan: 1. * Revision posterior C2-T2 decompression fusion for hardware failure Description of Procedure: C2-T2 Decompression and Fusion The patient was seen and examined in the preoperative area. All preoperative protocols were followed. Informed consent was obtained risks and benefits of the procedure were discussed at length. Risks including bleeding infection damage to the surrounding tissue and risk of reoperation were discussed with the patient. Risk of anesthesia up to and including was a discussed with the patient. These are outlined in the risk review. They were willing to accept these risks and all of the risks of surgery. The patient was given a weight- based dose of antibiotics in the form of 2 g Ancef. The patient was seen and evaluated by the anesthesia team who deemed them fit for surgery. The site was marked, the patient was willing to proceed with the procedure. The patient was transferred to the operative suite by the Department of anesthesia. They were then drifted off to sleep by the department anesthesia and GETA was performed. The patient tolerated this well. pre-positioning motors were obtained.Isaac in place from the floor. Once confirmation of lines and ventilation [place] head clamp was placed on the patient and secured and the patient was transferred to a [prone [place] table very carefully] with the [facility] clinical trial head the head was secured and placed into an optimal position x- ray confirmed this position. Post-positioning motors remained stable. All bony prominences including wrists, elbows, axilla, chest, hips, and thighs, and feet were padded very well. Special attention was paid to the genitalia and these were padded accordingly. SCDs were placed on bilateral lower extremities and were connected. Arms were well padded and placed tucked at his side thumbs down. Shoulders were gently taped down to the table.. Once in position, again we confirmed good ventilation capabilities and that lines were running appropriately. The patient's posterior cervical spine was then exposed. 1010s were placed outlining the incision site. Standard alcohol was used to clean the incision site and allowed to dry. C-arm was used to biomark the patient and confirm level for incision which was marked with a skin marker. Operative briefing was performed with all teams and everyone in agreement to proceed. The patient was then prepped and draped in a normal sterile fashion. Timeout was then performed and all parties were in agreement with the procedure to be performed. Midline skin incision made over the previously biomarked area and dissection taken down midline to the SP of C2-T2 and exposed the hardware from C2-T1. Subperiosteal dissection taken out over the lamina and lateral masses of C2-C7 and TVP of T1 and T2. Once exposure complete, wound was irrigated and c arm brought in for imaging. Hardware was removed from C2-T1, set screws removed and margi removed which was still attached to broken T1 heads b/l. [place] was then used to decorticate around the screw in T1 and this was then removed with broken screw removal set. Once removed, feeler was used to sound the pedicle and it was patent with good wall and and good floor. Screws were then measured and placed into T1 b/l using flouroscopy. Then under fluoroscopy, T2 screws were placed using a carin for a fuel pilot engineer hole followed by pedicle finder and tap. Feeler used to sound pedicle and it had good villa and floor. Screw was then measured and placed into T2 b/l. These were visualized on AP and Lateral and were in goo d position. The wound was then copiously irrigated with 3L ancef irrigation, 3 L gentamycin irrigation and 6 L nSS. Rods were then selected and bent and cut to appropriately length they were then placed into screws and set screws placed. There was no tension on the T1-2 region. The fusion was explored and there was good bone formation happening out posteriolateral of C2-C7 at this time and this was left. The joints at T1-2 were decorticated and magnatos placed in the PL gutter. 2 g of powdered bank was not placed deep within the wound and a deep drain was placed. We then proceeded with layered closure first in the deep fascia with #1 PDS then in the middle fascia with 0 Vicryl superficial fascia was closed with 2-0 Vicryl and skin closed with skin biju. The wound edges approximated very well. The wound was then cleaned and dressed sterilely with an operative foam dressing 4 x 4 and Tegaderm. The drain had good suction. The patient was placed in a hard cervical collar. The patient was transferred back to their hospital bed atraumatically. Walker head clamp was removed and pin sites were clear. [Drain continued to hold suction and were in good position]. Patient was then awakened and extubated by the department of anesthesia having tolerated the procedure very well with no complications. They were transferred to the postoperative care unit in stable condition.
--- NOTE | 2023-02-02 11:18 | P.PN ---
Progress Note - Text Progress Note Date: 02/02/23 Postop: . Patient seen and examined they are doing well. Their pain is under control at this time. They are moving all 4 extremities without any issues. Vital signs are stable.. They are currently recovering and will be transferred to the floor once deemed stable by the PACU team and anesthesiologist. No Other issues at this time they deny fever chills shortness of breath or chest pain. [C collar in place, well fitting] [Medical management pending] [Continue with intravenous fluids, pain medication, muscle relaxers, home medication] [Soft diet to start to advance as tolerated] We will evaluate the patient in the morning.
[2023-02-02] MEDS ORDERED: bisacodyL 10 MG SUPP RECTAL PRN (11:20)
[2023-02-02] MEDS ORDERED: HYDROmorphone 0.5 MG/0.5 ML SYRINGE IVP PRN (11:20)
[2023-02-02] MEDS ORDERED: SENNOSIDES-DOCUSATE SODIUM 1 EACH TAB PO PRN (11:20)
[2023-02-02] MEDS ORDERED: ONDANSETRON 4 MG/2 ML VIAL IVP PRN (11:20)
[2023-02-02] MEDS ORDERED: MAG HYDROX/AL HYDROX/SIMETH 30 ML CUP PO PRN (11:20)
[2023-02-02] MEDS ORDERED: MAGNESIUM HYDROXIDE 2,400 MG/30 ML CUP PO PRN (11:20)
[2023-02-02] MEDS ORDERED: HYDROmorphone 1 MG/ML 1 ML SYRINGE IVP ONE (11:28)
--- NOTE | 2023-02-02 11:39 | FL ---
Intraoperative/procedural fluoroscopic services were provided. Total fluoroscopy time is 7.9 seconds with a total of 7 submitted images to PACS. Please see the operative/procedural note for further deta ils. DAP: 0.1462 Gycm2
[2023-02-02] MEDS ORDERED: diphenhydrAMINE 50 MG/ML 1 ML VIAL IVP ONE (12:04)
[2023-02-02] MEDS: HYDROcodone/APAP 10-325MG 1 EACH TAB PO PRN ×2 (12:56→18:40)
[2023-02-02] MEDS: ACETAMINOPHEN TAB 325 MG TAB PO SCH ×3 (13:17→23:22)
[2023-02-02] MEDS: 0.9% NACL WITH KCL 20 MEQ/L 1,000 ML IV SCH (14:29)
--- NOTE | 2023-02-02 15:47 | CT ---
EXAMINATION TYPE: CT cervical spine wo con DATE OF EXAM: 02/02/2023 COMPARISON: 12/09/2022 HISTORY: post-op CT DLP: 453.1 mGycm CONTRAST: None CT of the cervical spine is performed in the axial plane at 2 mm thick sections. Reconstructed image s in the coronal, and sagittal plane are reviewed on the computer. No acute fractures are evident. Postsurgical changes are present with laminectomies and placement of pedicle screws and disc spacers. Disc spacers are present at C3-4 C4-5 C5-C6. Pedicle screws are present C3-T1. No AP spinal canal st enosis is present. Postsurgical changes are evident. Postsurgical air is within the posterior soft ti ssues. IMPRESSIONS: 1. Postsurgical cervical spine with laminectomies and placement of pedicle screws and fixation rods as well as disc spacers discussed above
[2023-02-02] MEDS: HYDROmorphone 1 MG/ML 1 ML SYRINGE IVP PRN ×3 (16:20→21:42)
[2023-02-02] MEDS: HYDROcodone/APAP 5-325MG 1 EACH TAB PO PRN (23:38)
[2023-02-03] MEDS: HYDROmorphone 1 MG/ML 1 ML SYRINGE IVP PRN ×7 (00:43→23:36)
[2023-02-03] MEDS: CYCLOBENZAPRINE 10 MG TAB PO PRN ×2 (01:31→23:38)
[2023-02-03] MEDS: HYDROcodone/APAP 10-325MG 1 EACH TAB PO PRN ×3 (01:31→20:32)
[2023-02-03] MEDS: 0.9% NACL WITH KCL 20 MEQ/L 1,000 ML IV SCH ×2 (03:14→18:26)
--- NOTE | 2023-02-03 04:19 | P.CONS ---
History of Present Illness - Reason for Consult Consult date: 02/02/23 perioperative medical evaluation - Chief Complaint neck pain - History of Present Illness 62 year old female with hypertension she is here for scheduled cervical spine revision surgery , she tolerated procedure well ,, no observed immediate post op complications denies any chest pain or SOB. denies any nasuea or vomiting. denies any new onset weakness or numbness post op deneis tobacco smoking , illicit drugs or alcohol review of systems Pertinent positives as noted in HPI. All other systems were reviewed and are negative on exam Constitutional: No acute distress, conversant, pleasant Eyes: Anicteric sclerae, moist conjunctiva, Pupils equal round reactive to light ENMT: NC/AT Oropharynx clear, no erythema, or exudates Lungs: Clear to auscultation Clear to percussion Normal respiratory effort, no accessory muscle use Cardiovascular: Heart regular in rate and rhythm, No murmurs, gallops, or rubs No peripheral edema Abdominal: Soft Nontender, no guarding, rebound or rigidity Abdomen moving with respiration Normoactive bowel sounds Extremities: No digital cyanosis No clubbing Pedal pulses intact and symmetrical Radial pulses intact and symmetrical No calf tenderness Psychiatric: Alert and oriented to person, place and time Appropriate affect fair judgement Neuro Muscles Strength 4/5 in all 4 extremities Sensation to light touch grossly present throughout Cranial nerves II-XII grossly intact Past Medical History Past Medical History: COPD, Eye Disorder, Hyperlipidemia, Hypertension, Osteoarthritis (OA) Additional Past Medical History / Comment(s): Glaucoma leodan eyes-no drops History of Any Multi-Drug Resistant Organisms: None Reported Past Surgical History: Cholecystectomy, Hysterectomy, Orthopedic Surgery Additional Past Surgical History / Comment(s): C2-T2 laminectomy/fusion OR on 12-09-22, Right wrist carpal tunnel surgery, right knee surgery x2,left knee surgery,eye lid surgery. Past Anesthesia/Blood Transfusion Reactions: Postoperative Nausea & Vomiting (PONV) Additional Past Anesthesia/Blood Transfusion Reaction / Comm: no hx blood transfusion Past Psychological History: No Psychological Hx Reported Smoking Status: Current every day smoker Past Alcohol Use History: Occasional Additional Past Alcohol Use History / Comment(s): Smokes 1 ppd since age 15. Past Drug Use History: None Reported - Past Family History Sister(s) Family Medical History: No Reported History Medications and Allergies Home Medications Medication Instructions Recorded Confirmed Type Cholecalciferol [Vitamin D3 (125 250 mcg PO DAILY 12/04/22 01/30/23 History Mcg = 5000 Iu)] Collagen Powder 1 dose PO DAILY 12/04/22 01/30/23 History Psyllium Husk (with Sugar) 1 dose PO DAILY 12/04/22 01/30/23 History [Metamucil Powder] Vitamin C 3 tab PO DAILY 12/04/22 01/30/23 History Vitamin K2 [Mk-7] 180 mcg PO DAILY 12/04/22 01/30/23 History amLODIPine 10 mg PO QAM 01/23/23 02/02/23 History Acetaminophen Tab [Tylenol] 1,000 mg PO Q6HR PRN 02/02/23 02/02/23 History Allergies Allergy/AdvReac Type Severity Reaction Status Date / Time gabapentin AdvReac Hallucinati Verified 01/30/23 11:01 ons iodine IV Allergy Vomiting Uncoded 01/30/23 11:01 Physical Exam Vitals: Vital Signs Temp Pulse Resp BP Pulse Ox 02/03/23 02:00 98.6 F 69 16 122/73 98 02/02/23 21:20 98.2 F 84 15 115/65 97 02/02/23 20:00 67 18 02/02/23 14:09 67 18 107/66 97 02/02/23 13:45 67 18 122/77 96 02/02/23 13:30 85 18 132/85 99 02/02/23 13:15 80 18 137/71 97 02/02/23 12:50 97.5 F L 79 17 118/70 97 02/02/23 12:15 66 16 107/59 97 02/02/23 12:00 58 L 18 107/50 96 02/02/23 11:45 60 14 110/55 94 L 02/02/23 11:30 62 18 116/64 98 02/02/23 11:15 77 20 131/69 100 02/02/23 11:00 97.0 F L 66 12 107/57 100 02/02/23 07:12 97.9 F 89 16 136/65 95 Intake and Output 02/02/23 02/02/23 02/03/23 14:59 22:59 06:59 Intake Total 1812 Output Total 550 100 800 Balance 1262 -100 -800 Intake: IV 181 Output: Drainage 150 Posterior Neck 150 Urine 400 100 650 Estimated Blood Loss 150 Other: Voiding Method Indwelling Catheter Weight 66.2 kg Assessment and Plan Assessment: s/p cervical spine surgical revision due to broken screws, POD zero pain control and management per orthopedic team hypertension controlled resume amlodipine follow up CBC, BMP encourage to use incentive spirometry full code stable from medical stand point thank you for this consultation
[2023-02-03] MEDS: HYDROcodone/APAP 5-325MG 1 EACH TAB PO PRN (05:35)
[2023-02-03] MEDS: ACETAMINOPHEN TAB 325 MG TAB PO SCH ×3 (05:36→17:40)
[2023-02-03] MEDS: LACTATED RINGERS 1,000 ML IV SCH (05:51)
--- NOTE | 2023-02-03 08:45 | P.PN ---
Subjective Progress Note Date: 02/03/23 Principal diagnosis: 1. Hardware failure T1 b/l screws 2. 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 Patient is resting comfortably in bed. She states her pain is managed on current regimen. Surgical dressing to the posterior cervical spine is clean dry and intact with RADHA drain present, output of 150 mLs overnight. Patient states she has been ambulatory with an room without difficulty. Patient denies any numbness or tingling to bilateral upper extremities. Overall patient states she is very happy with her progress and seems to be doing well. Patient has been afebrile, denies nausea/vomiting, or chest pain. Objective - Vital Signs Vital signs: Vital Signs Temp 98.6 F 02/03/23 02:00 Pulse 69 02/03/23 02:00 Resp 16 02/03/23 02:00 BP 122/73 02/03/23 02:00 Pulse Ox 98 02/03/23 02:00 FiO2 Intake & Output 02/02/23 02/03/23 02/03/23 18:59 06:59 18:59 Intake Total 1812 825 Output Total 550 900 Balance 1262 -75 Weight 66.2 kg Intake: IV 1812 Intake, IV Titration 825 Amount 0.9% NaCl with KCl 20 Meq 825 /l 1,000 ml @ 75 mls/hr IV .[id number] [facility] Rx#: [id number] Output: Drainage 150 Posterior Neck 150 Urine 400 750 Estimated Blood Loss 150 Other: Voiding Method Indwelling Catheter - Exam Physical Examination General: The patient is awake and alert, in no acute distress Skin: Skin is warm and dry with no obvious rashes or lesions. Surgical incision to the posterior cervical spine, dressing is CDI, RADHA drain present with 150ml output overnight. Eye: Pupils are equal, round and reactive to light, extra-ocular movements are intact; there is normal conjunctiva bilaterally. Neck: The neck is supple, there is mild tenderness and limited ROM due to surgical procedure. Cardiovascular: There is a regular rate and rhythm. No murmur, rub or gallop is appreciated. Respiratory: Lungs are clear to auscultation, respirations are non-labored, breath sounds are equal. Gastrointestinal: Soft, non-distended, non-tender abdomen. Back: There is no tenderness to palpation in the midline, paralumbar, parathoracic or buttocks region. There is no obvious deformity . Musculoskeletal: FROM in upper and lower extremities. Muscle strength in all major muscle groups of bilateral upper extremities 5/5, bilateral lower extremities 5/5. Neurological: CN 2-12 intact. There are no obvious motor or sensory deficits. Movement and coordination equal and intact. Sensory exam to light touch intact C5-T1 and intact from L2-S1. Reflexes 2/4 in bilateral upper and lower extremities. Negative Hoffmans, babinski, and clonus signs. Psychiatric: Cooperative, appropriate mood & affect, normal judgment. Assessment and Plan Assessment: Postop day 1: Revision posterior C2-T2 decompression fusion for hardware failure 1. Hardware failure T1 b/l screws 2. Cervical spondylotic, myelopathy with myelomalacia, s/p 360 cervical decomp ression fusion Plan: -Appreciate consultant [employer]. vice president [employer] (ex ) and team management. -Activity: Ambulate QID, OOB all meals, up and about, limit lifting bending twisting to less than 5 lbs. No overhead reaching, pulling, or pushing. Use walker or cane if needed for stability. -Daily PT/OT, increase ambulation strength and balance. -Hard Cervical collar at all times, may remove for showers. -Pain control: Adequate at this time -Meds: reviewed -GI ppx: senna, Miralax -DC sellers today -DVT PPX: OK to restart Heparin tonight -Hygiene: Shower today. Maintain dressing clean and dry. -Drains: Maintain for now. Continue to record output every shift -Encourage IS 10x/hr -Dispo: Anticipate discharge home tomorrow with homecare tomorrow 02/04/23 *I reviewed and discussed this case with my attending Dr. Araiza, whom has reviewed this chart and films and is in agreement with assessment and plan of care as outlined above. I have personally seen and examined the patient, performed the documentation and the assessment and plan as written. Number of minutes spent on the visit: 15m.
[2023-02-03] MEDS: amLODIPine 10 MG TAB PO SCH ×2 (10:12→10:13)
[2023-02-03 10:57] LABS: Basophils # (A) 0.02 X 10*3/uL (0.00-0.10); Basophils % (A) 0.2 %; Eosinophils # (A) 0.02 X 10*3/uL (0.04-0.35); Eosinophils % (A) 0.2 %; HGB 10.9 d/dL (12.0-15.0); Lymphocytes # (A) 1.32 X 10*3/uL (0.90-5.00); Lymphocytes % (A) 13.9 %; MCH 31.6 pg (27.0-32.0); MCV 95.7 FL (80.0-97.0); Mean Platelet Volume 9.4 FL (9.5-12.2); Monocytes # (A) 0.81 X 10*3/uL (0.20-1.00); Monocytes % (A) 8.6 %; NRBC Per 100 WBC 0 X 10*3/uL (0.00-0.01); Neutrophils # (A) 7.27 X 10*3/uL (1.80-7.70); Neutrophils % (A) 76.8 %; Platelet Count 218 X 10*3/uL (140-440); RBC 3.45 X 10*6/uL (4.10-5.20); RDW 12.8 % (11.5-14.5); WBC 9.47 X 10*3/uL (4.50-10.00)
[2023-02-03 11:08] LABS: BUN/Creat Ratio 16.71 Ratio (12.00-20.00); Blood Urea Nitrogen 11.7 mg/dL (9.0-27.0); Calcium 8.8 mg/dL (8.7-10.3); Carbon Dioxide 25.6 mmol/L (21.6-31.8); Chloride 100 mmol/L (96-109); Glucose 108 mg/dL (70-110); Sodium 135 mmol/L (135-145)
[2023-02-03] MEDS: diphenhydrAMINE 50 MG/ML 1 ML VIAL IVP PRN ×3 (11:24→23:59)
--- NOTE | 2023-02-03 12:53 | P.PN ---
Subjective Progress Note Date: 02/03/23 Subjective: No acute events overnight. She claims that she has some pain in her cervical spine. Pertinent positives and negatives as discussed above, a complete review of systems was performed and all other systems are negative. Vitals Signs Reviewed. General: nontoxic, no distress, appears at stated age Derm: warm, dry, drain in place Head: atraumatic, normocephalic, symmetric, c-collar in place Eyes: EOMI, no lid lag, anicteric sclera Mouth: no lip lesion, mucus membranes moist Cardiovascular: S1S2 reg, no murmur Lungs: CTA bilateral, no rhonchi, no rales , no accessory muscle use Abdominal: soft, nontender to palpation, no guarding, no appreciable organomegaly Ext: no gross muscle atrophy, no edema, no contractures Neuro: CN II-XI grossly intact, no focal neuro deficits Psych: Alert, oriented, appropriate affect Data Reviewed Today: Pertinent Labs: Hemoglobin 10.9, creatinine 0.7 Imaging: No neurologic Assessment and Plan: Status post cervical spine surgical revision Hypertension Acute blood loss anemia, anticipated outcome of surgery -On oral Tylenol, oral [place], IV Dilaudid as needed -SCDs for DVT ppx -Started on IV Benadryl for itching -Continue amlodipine -Repeat CBC tomorrow Patient is medically optimized for discharge home Thank you for allowing us to participate in the care of this pleasant patient. Do not hesitate to contact us with questions. Someone can be reached from the [facility] hospitalist group all hours of the day at [phone] or via perfect serve. Objective - Vital Signs Vital signs: Vital Signs Temp 98.2 F 02/03/23 07:35 Pulse 75 02/03/23 07:35 Resp 17 02/03/23 07:35 BP 117/69 02/03/23 07:35 Pulse Ox 97 02/03/23 07:35 FiO2 Intake & Output 02/02/23 02/03/23 02/03/23 18:59 06:59 18:59 Intake Total 1812 825 Output Total 727 631 6380 Balance 1262 -75 -1500 Weight 66.2 kg Intake: IV 1812 Intake, IV Titration 825 Amount 0.9% NaCl with KCl 20 Meq 825 /l 1,000 ml @ 75 mls/hr IV .[id number] [facility] Rx#: [id number] Output: Drainage 150 200 Posterior Neck 150 200 Urine 102 130 3829 Uretheral (Isaac) 1300 Estimated Blood Loss 150 Other: Voiding Method Indwelling Catheter - Labs CBC & Chem 7: 02/03/23 04:06 02/03/23 04:06 Labs: Abnormal Lab Results - Last 24 Hours (Table) 02/03/23 Range/Units 04:06 RBC 3.45 L (4.10-5.20) X 10*6/uL Hgb 10.9 L (12.0-15.0) d/dL Hct 33.0 L (37.2-46.3) % MPV 9.4 L (9.5-12.2) FL Eosinophils # 0.02 L (0.04-0.35) X 10*3/uL
[2023-02-04] MEDS: ACETAMINOPHEN TAB 325 MG TAB PO SCH ×3 (01:40→12:31)
[2023-02-04] MEDS: HYDROcodone/APAP 10-325MG 1 EACH TAB PO PRN ×2 (02:33→09:01)
[2023-02-04] MEDS: 0.9% NACL WITH KCL 20 MEQ/L 1,000 ML IV SCH ×2 (06:24→06:40)
[2023-02-04] MEDS: LACTATED RINGERS 1,000 ML IV SCH (06:24)
[2023-02-04] MEDS: diphenhydrAMINE 50 MG/ML 1 ML VIAL IVP PRN (06:40)
[2023-02-04 07:29] VITALS: BP 134/79; PULSE 68; RESP 16; TEMP 98.4
[2023-02-04] MEDS: amLODIPine 10 MG TAB PO SCH (09:01)
[2023-02-04 09:30] LABS: Basophils # (A) 0.03 X 10*3/uL (0.00-0.10); Basophils % (A) 0.5 %; Eosinophils # (A) 0.15 X 10*3/uL (0.04-0.35); Eosinophils % (A) 2.4 %; HCT 32.2 % (37.2-46.3); HGB 10.5 d/dL (12.0-15.0); Lymphocytes # (A) 1.52 X 10*3/uL (0.90-5.00); Lymphocytes % (A) 24.8 %; MCH 31.9 pg (27.0-32.0); MCHC 32.6 d/dL (32.0-37.0); MCV 97.9 FL (80.0-97.0); Mean Platelet Volume 9.7 FL (9.5-12.2); Monocytes # (A) 0.73 X 10*3/uL (0.20-1.00); Monocytes % (A) 11.9 %; NRBC Per 100 WBC 0 X 10*3/uL (0.00-0.01); Neutrophils # (A) 3.68 X 10*3/uL (1.80-7.70); Neutrophils % (A) 60.1 %; Platelet Count 202 X 10*3/uL (140-440); RBC 3.29 X 10*6/uL (4.10-5.20); WBC 6.13 X 10*3/uL (4.50-10.00)
--- NOTE | 2023-02-04 09:42 | P.PN ---
Subjective Progress Note Date: 02/04/23 Principal diagnosis: 1. Hardware failure T1 b/l screws 2. 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 Patient is sitting up in chair. She states her pain is managed on current regimen. Surgical dressing to the posterior cervical spine has been changed this morning 02/04/2023 RADHA drain has b een removed. Patient states she has been ambulatory with an room without difficulty. Patient denies any numbness or tingling to bilateral upper extremities. Overall patient states she is very happy with her progress and seems to be doing well. Patient is looking forward to going home later today. Patient has been afebrile, denies nausea/vomiting, or chest pain. Objective - Vital Signs Vital signs: Vital Signs Temp 98.4 F 02/04/23 06:40 Pulse 68 02/04/23 06:40 Resp 16 02/04/23 06:40 BP 134/79 02/04/23 06:40 Pulse Ox 98 02/04/23 06:40 FiO2 Intake & Output 02/03/23 02/04/23 02/04/23 18:59 06:59 18:59 Intake Total 200 Output Total 3140 1750 896 Balance -3140 -1550 -896 Intake: Oral 200 Output: Drainage 240 Posterior Neck 240 Urine 2900 1750 200 Straight 800 700 Uretheral (Sellers) 1300 Post Void Residual 696 Other: # Voids 1 3 - Exam Physical Examination General: The patient is awake and alert, in no acute distress Skin: Skin is warm and dry with no obvious rashes or lesions. Surgical incision to the posterior cervical spine, dressing is CDI. Eye: Pupils are equal, round and reactive to light, extra-ocular movements are intact; there is normal conjunctiva bilaterally. Neck: The neck is supple, there is mild tenderness and limited ROM due to surgical procedure. Cardiovascular: There is a regular rate and rhythm. No murmur, rub or gallop is appreciated. Respiratory: Lungs are clear to auscultation, respirations are non-labored, breath sounds are equal. Gastrointestinal: Soft, non-distended, non-tender abdomen. Back: There is no tenderness to palpation in the midline, paralumbar, parathoracic or buttocks region. There is no obvious deformity . Musculoskeletal: FROM in upper and lower extremities. Muscle strength in all major muscle groups of bilateral upper extremities 5/5, bilateral lower extrem ities 5/5. Neurological: CN 2-12 intact. There are no obvious motor or sensory deficits. Movement and coordination equal and intact. Sensory exam to light touch intact C5-T1 and intact from L2-S1. Reflexes 2/4 in bilateral upper and lower extremities. Negative Hoffmans, babinski, and clonus signs. Psychiatric: Cooperative, appropriate mood & affect, normal judgment. - Labs CBC & Chem 7: 02/04/23 04:59 02/03/23 04:06 Labs: Abnormal Lab Results - Last 24 Hours (Table) 02/03/23 Range/Units 04:06 RBC 3.45 L (4.10-5.20) X 10*6/uL Hgb 10.9 L (12.0-15.0) d/dL Hct 33.0 L (37.2-46.3) % MPV 9.4 L (9.5-12.2) FL Eosinophils # 0.02 L (0.04-0.35) X 10*3/uL Assessment and Plan Assessment: Postop day 2: Revision posterior C2-T2 decompression fusion for hardware failure 1. Hardware failure T1 b/l screws 2. Cervical spondylotic, myelopathy with myelomalacia, s/p 360 cervical decompression fusion Plan: -Appreciate framing consultant and team management. -Activity: Ambulate QID, OOB all meals, up and about, limit lifting bending twisting to less than 5 lbs. No overhead reaching, pulling, or pushing. Use walker or cane if needed for stability. -Daily PT/OT, increase ambulation strength and balance. -Hard Cervical collar at all times, may remove for showers. -Pain control: Adequate at this time -Meds: reviewed -GI ppx: senna, Miralax -DC sellers today -DVT PPX: OK to restart Heparin tonight -Hygiene: Shower today. Maintain dressing clean and dry. -Encourage IS 10x/hr -Dispo: Anticipate discharge home today *I reviewed and discussed this case with my attending Dr. Araiza, whom has reviewed this chart and films and is in agreement with assessment and plan of care as outlined above. I have personally seen and examined the patient, performed the documentation and the assessment and plan as written. Number of minutes spent on the visit: 15m.
--- NOTE | 2023-02-04 10:00 | P.DS ---
Providers Date of admission: 02/02/23 06:29 Expected date of discharge: 02/04/23 Attending physician: Giovanni Araiza DO Consults: 02/02/23 17:44 Consult Physician Routine Consulting Provider: Shane Rouse Consult Reason/Comments: Medical management Do you want consulting provider notified?: Yes Primary care physician: Stated None Hospital Course: Date of admission: 02/02/2023 Date of discharge: 02/04/2023 Admission diagnosis: 1. HARDWARE FAILURE T1 B/L S/P 360 CERVICAL FUSION WITH C2-T1 DECOMPRESSION FUSION 2. NECK PAIN 3. UE RADICULOPATHY, IMPROVING Discharge diagnosis: Same Attending physician: Dr. Araiza Surgical procedures: Revision C2-T2 decompression fusion Brief history: Patient is a 62-year-old female with a history of with failure T1 status post 360 cervical fusion with C2-T1 decompression fusion. At this point patient has failed conservative treatment measures and has opted to proceed with a elective revision C2-T2 decompression fusion. Hospital course: Details of patient's surgery can be found in operative report. Patient tolerated the procedure well and was subsequently transported to orthopedic floor. Patient's orthopeidc and medical care was provided daily. Patient had daily laboratory tests performed for evaluation of overall blood counts. Patient had daily physical therapy to include strengthening range of motion as well as education with walker ambulation. Patient was noted to have a relatively uneventful postoperative course. Patient reported satisfactory pain control with oral pain medications by postoperative day 2. Patient showed satisfactory progress with physical therapy. Patient moved steadily through the program and had no difficulty meeting the goals by postoperative day 2. Given patient's otherwise satisfactory course and having met physical therapy goals, plan is to discharge patient home on postoperative day 2. Discharge condition/disposition: Patient will be discharged home in stable condition. Discharge medications: Instructions are given on resumption of patient's normal daily medications per primary care recommendation, in addition patient will be prescribed [place]; Flexeril; senna; Duricef Spine Discharge and Recovery Instructions Date of Surgery: 02/12/2023 Keep incision clean, dry, intact. While showering, cover dressing with Saran wrap. There is okay to remove dressing beginning on 02/07/2023. Okay to shower directly over incision was dressing is removed. Diagnosis: 1. HARDWARE FAILURE T1 B/L S/P 360 CERVICAL FUSION WITH C2-T1 DECOMPRESSION FUSION 2. NECK PAIN 3. UE RADICULOPATHY, IMPROVING Procedure: Revision C2-T2 decompression and fusion Medications: See medication list All medication refills should be obtained through your primary care doctor or your clinic spine surgeon. Please discuss prescription refills at your follow up appointment. Do not call the hospital for medication refills. Dressing: Leave your dressing in place for a total of 5 days post operatively. Then you may remove your dressing and leave open to air. Keep the area clean and if not able to keep area clean, then cover with sterile gauze and tape. Showering: You may shower 3 days after your procedure allowing soap and water to run over incision. Do not scrub. Do not soak. Blot dry. Follow up: Please confirm a follow up appointment with your surgeon 3 weeks post operatively. Please make an appointment to follow up with your PCP in 1-2 weeks after surgery for evaluation 3 phase, 3-week plan POST OP WEEKS 1-3 1. Lifting/carrying/pushing/pulling limited to less than 5 pounds. 2. Do not sit for longer than 15 minutes at one time. Get up and walk around. Prolonged sitting is NOT advised. If you lay down, see if you can tolerate laying down on you front (belly side) 3. Walk for periods of 15 minutes = 1 mile but no longer; do it multiple times times each day. 4. Ice your low back after activity. POST OP WEEKS 3-6 1. Lifting limited to less than 20 pounds. 2. Do not sit for longer than 30 minutes at a time. Frequently change positions. Use a sit-to stand workstation or take frequent breaks from sitting if you have returned to work. 3. Walk for 30 minutes each day. If possible, do these three or more times a day POST OP WEEKS 6+ At your 6-week appointment we will give you a physical therapy referral to focus on a core stabilization and strengthening program. You should also work on leg & buttock strengthening, hamstring & quadriceps stretching, and continue a low impact aerobic activity program such as swimming, walking, or riding a stationary bicycle. During the initial 6 weeks after your surgery, you are at the highest risk of re-injuring your spine. You should generally avoid BLTs (bending, lifting and twisting combination motions) and follow the above guidelines to reduce the chance of reinjury. You can anticipate post op appointments in our office at approximately 3 weeks and 6 weeks after your surgery. INCISION CARE: If your incision is not draining you do NOT need to cover it with a dressing. Keep your incision clean, dry and intact. In most cases, we apply skin glue, biju or sutures to the incision at the time of surgery. This will be like a crust or have the appearance of a scab and will fall off in time on its own. The stitches or biju need to be removed at 3 weeks post op appointment. You may begin to shower 3 days after surgery (this allows the glue to canales well). However, please avoid scrubbing the incision site or peeling off any of the skin glue. This will ensure optimal healing of your incision. Also, during this time avoid soaking the incision area in water - this includes swimming pools, hot tubs or baths. No ointments, lotions or oils on the incision until your surgeon allows. Leave biju, sutures or glue in place. Neurological dysfunction that comes on suddenly can also be a sign of a stroke. Below some common symptoms of a stroke are listed: B - balance difficulty such as sudden onset walking or leaning to one side - NEW E - eye problem such as sudden double vision or trouble seeing on one side - NEW F - Facial weakness or numbness on one side - NEW A - Arm or leg weakness or numbness on one side - NEW S - Slurred speech or difficulty with word finding - NEW T - Time is BRAIN! Call 911 as soon as you recognize these symptoms Diet: Consume a regular diet rich in vegetables and lean protein such as chicken or fish. You should consume in a ratio of approximately 20% fats|40% carbohydrates|40%protein. Vegetables, sweet potatoes, brown rice or quinoa are examples of good carbohydrates. Chips, white bread, cookies and sweets/sugar are examples of bad carbohydrates. Limit your bad carbs, go wild with good carbs. "Life's Simple 7" Guidelines as per [employer] These will help you reclaim your life after surgery and wire weaver helper in your zackary very, keeping in mind your restrictions. (1) Get Active. Physical activity can help people lose weight, control high blood pressure and cholesterol, feel emotionally better, and sleep better. (2) Control Cholesterol. Avoid a diet high in saturated fat, trans fat, & cholesterol. Limit whole milk & cream, ice cream, butter, egg yolks, processed meats (like sausage and hot dogs), and fatty meats. Choose healthy foods that are low in saturated fat, trans fat and cholesterol which include: Fruits and vegetables, fiber rich grain products (like whole grain pasta and brown rice), lean meat such as chicken, fish, nuts, seeds, and legumes. (3) Eat Better. Eat small portions. Shop at the grocery with a list and do not stray from it. Tips for a healthy diet include: Limit sodium intake to less than 1500mg daily, avoid prepackaged, processed, and fast foods, choose a diet rich in fruits, vegetables, and whole grain, high fiber foods, and limit saturated & cholesterol in your diet. (4) Manage Blood Pressure. If you have high blood pressure, you should have a cuff at home so that you can check your blood pressure regularly. Be sure you have a good cuff. An arm one is generally better than a wrist one. Bring the cuff to a doctor's appointment to validate that the measurements that your cuff are taking are accurate. Take your blood pressure twice daily when you are sitting down and relaxing. Record the numbers in a log and bring this log with you to your doctors' appointments. (5) Lose Weight if your BMI is above 25. A healthy BMI is between 19-25. To calculate Your BMI, you may use a Standard BMI Calculator on the NIH BMI website: <www.nhlbi.nih.gov/guidelines/obesity/BMI/bmicalc.htm>. Weigh oneself daily. If you are overweight, set a goal to lose weight. A pound a week loss if needed is a good target. (6) Reduce Blood Sugar. Limit foods and liquids with "added sugars." (Added sugars include sucrose, fructose, glucose, maltose, dextrose, high fructose corn syrup, corn syrup, concentrated fruit juice and honey). (7) Stop Smoking. If you smoke, quitting smoking is one of the best things that you can do for your health. Smoking increases your risk of heart attack, stroke, and peripheral vascular disease, which is a build-up of plaque in your arteries. Please discard all the cigarettes and lighters in your house. Have a plan for what you will do when you have the urge to smoke. Direct and second- hand smoke shortens your life as well as the lives of your family, friends and others around you. For your health and the health of those around you, please consider quitting! Proper Bending Body Mechanics: Maintain a wide stance with one foot slightly in front of the other. Keep your back straight. Bend utilizing the strength in your hips and knees. Do not bend at the waist. Maintain the lifted object at your waist-level close to your body. Avoid lifting weight that causes immediately pain or pain anywhere in the body afterwards. Smoking/Nicotine If there was ever one thing that you could do to increase your overall health, decrease your risk of cardiovascular problems by about 39% the second you make the choice, it is to STOP SMOKING. Your body's most instant gratification is the second you stop smoking. We have all heard the studies, read the articles but it is true, smoking is extremely bad for your overall health, and moreover it is detrimental to your bone health. Nicotine, IN ANY FORM, kills bone cells, prevents your body from healing fractures, and significantly prolongs healing after surgery. In spine surgery specifically, it increases your risk of not healing your bones to create a fusion and increases your risk of having a revision surgery due to this up to 60%. I know it is hard. I know it feels impossible. But there are ways. Take control of your life. We are here to help you through it. And when you are ready, ask us and we can direct you to help if you desire. Use the START Plan to Quit Smoking (please visit the HelpguIvyDate.org website listed below for more information): S = Set a quit date. Choose a date within the next 2 weeks, so you have enough time to prepare without losing your motivation to quit. If you mainly smoke at work, quit on the weekend, so you have a few days to adjust to the change. T = Tell family, friends, and co-workers that you plan to quit. Let your friends and family in on your plan to quit smoking and tell them you need their support and encouragement to stop. Look for a quit choco who wants to stop smoking as well. You can help each other get through the rough times. A = Anticipate and plan for the challenges you'll face while quitting. Most people who begin smoking again do so within the first 3 months. You can help yourself make it through by preparing ahead for common challenges, such as nicotine withdrawal and cigarette cravings. R = Remove cigarettes and other tobacco products from your home, car, and work. Throw away all your cigarettes (no emergency pack!), lighters, ashtrays, and matches. Wash your clothes and freshen up anything that smells like smoke. Shampoo your car, clean your drapes and carpet, and steam your furniture. T = Talk to your doctor about getting help to quit. Your doctor can prescribe medication to help with withdrawal and suggest other alternatives. If you can't see a doctor, you can get many products over the counter at your local pharmacy or grocery store, including the nicotine patch, nicotine lozenges, and nicotine gum. Resources for Quitting Smoking: <https://www.[place].gov/documents/[facility]/Quit_Tobacco_Resources_for_patients_313 480_7.pdf> Supplementation: Take recommended dosages of Vitamin D and Calcium to help fortify your bones and help them to heal. See your health maintenance packet for dosages and recommended levels. DVT/VTE prophylaxis: You will be given compression stockings from the hospital. Wear these daily for the first two weeks after surgery. You may take them off at night. You may be prescribed a medication to help thin your blood. Take this as directed. If you are not prescribed this medication, early and frequent ambulation has been shown to be the best prophylaxis to deep vein thrombosis and sequelae related to this event. Assessment: 1. HARDWARE FAILURE T1 B/L S/P 360 CERVICAL FUSION WITH C2-T1 DECOMPRESSION FUSION 2. NECK PAIN 3. UE RADICULOPATHY, IMPROVING Procedures: 1. REVISION C2-T2 POSTERIOLATERAL STABILIZED FUSION Patient Condition at Discharge: Good Plan - Discharge Summary Discharge Rx Participant: No New Discharge Prescriptions: No Action Cholecalciferol [Vitamin D3 (125 Mcg = 5000 Iu)] 250 mcg PO DAILY Psyllium Husk (with Sugar) [Metamucil Powder] 1 dose PO DAILY Collagen Powder 1 dose PO DAILY Acetaminophen Tab [Tylenol] 1,000 mg PO Q6HR PRN PRN Reason: Pain Control Vitamin K2 [Mk-7] 180 mcg PO DAILY Vitamin C 3 tab PO DAILY amLODIPine 10 mg PO QAM Discharge Medication List Cholecalciferol [Vitamin D3 (125 Mcg = 5000 Iu)] 250 mcg PO DAILY 12/04/22 [History] Collagen Powder 1 dose PO DAILY 12/04/22 [History] Psyllium Husk (with Sugar) [Metamucil Powder] 1 dose PO DAILY 12/04/22 [History] Vitamin C 3 tab PO DAILY 12/04/22 [History] Vitamin K2 [Mk-7] 180 mcg PO DAILY 12/04/22 [History] amLODIPine 10 mg PO QAM 01/23/23 [History] Acetaminophen Tab [Tylenol] 1,000 mg PO Q6HR PRN 02/02/23 [History] Follow up Appointment(s)/Referral(s): Giovanni Araiza DO [Doctor of Osteopathic Medicine] - 02/12/23 1:30 pm Activity/Diet/Wound Care/Special Instructions: Spine Discharge and Recovery Instructions Date of Surgery: 02/12/2023 Keep incision clean, dry, intact. While showering, cover dressing with Saran wrap. There is okay to remove dressing beginning on 02/07/2023. Okay to shower directly over incision was dressing is removed. Diagnosis: 1. HARDWARE FAILURE T1 B/L S/P 360 CERVICAL FUSION WITH C2-T1 DECOMPRESSION FUSION 2. NECK PAIN 3. UE RADICULOPATHY, IMPROVING Procedure: Revision C2-T2 decompression and fusion Medications: See medication list All medication refills should be obtained through your primary care doctor or your clinic spine surgeon. Please discuss prescription refills at your follow up appointment. Do not call the hospital for medication refills. Dressing: Leave your dressing in place for a total of 5 days post operatively. Then you may remove your dressing and leave open to air. Keep the area clean and if not able to keep area clean, then cover with sterile gauze and tape. Showering: You may shower 3 days after your procedure allowing soap and water to run over incision. Do not scrub. Do not soak. Blot dry. Follow up: Please confirm a follow up appointment with your surgeon 3 weeks post operative ly. Please make an appointment to follow up with your PCP in 1-2 weeks after surgery for evaluation 3 phase, 3-week plan POST OP WEEKS 1-3 1. Lifting/carrying/pushing/pulling limited to less than 5 pounds. 2. Do not sit for longer than 15 minutes at one time. Get up and walk around. Prolonged sitting is NOT advised. If you lay down, see if you can tolerate laying down on you front (belly side) 3. Walk for periods of 15 minutes = 1 mile but no longer; do it multiple times times each day. 4. Ice your low back after activity. POST OP WEEKS 3-6 1. Lifting limited to less than 20 pounds. 2. Do not sit for longer than 30 minutes at a time. Frequently change positions. Use a sit-to stand workstation or take frequent breaks from sitting if you have returned to work. 3. Walk for 30 minutes each day. If possible, do these three or more times a day POST OP WEEKS 6+ At your 6-week appointment we will give you a physical therapy referral to focus on a core stabilization and strengthening program. You should also work on leg & buttock strengthening, hamstring & quadriceps stretching, and continue a low impact aerobic activity program such as swimming, walking, or riding a stationary bicycle. During the initial 6 weeks after your surgery, you are at the highest risk of re-injuring your spine. You should generally avoid BLTs (bending, lifting and twisting combination motions) and follow the above guidelines to reduce the chance of reinjury. You can anticipate post op appointments in our office at approximately 3 weeks and 6 weeks after your surgery. INCISION CARE: If your incision is not draining you do NOT need to cover it with a dressing. Keep your incision clean, dry and intact. In most cases, we apply skin glue, biju or sutures to the incision at the time of surgery. This will be like a crust or have the appearance of a scab and will fall off in time on its own. The stitches or biju need to be removed at 3 weeks post op appointment. You may begin to shower 3 days after surgery (this allows the glue to canales well). However, please avoid scrubbing the incision site or peeling off any of the skin glue. This will ensure optimal healing of your incision. Also, during this time avoid soaking the incision area in water - this includes swimming pools, hot tubs or baths. No ointments, lotions or oils on the incision until your surgeon allows. Leave biju, sutures or glue in place. Neurological dysfunction that comes on suddenly can also be a sign of a stroke. Below some common symptoms of a stroke are listed: B - balance difficulty such as sudden onset walking or leaning to one side - NEW E - eye problem such as sudden double vision or trouble seeing on one side - NEW F - Facial weakness or numbness on one side - NEW A - Arm or leg weakness or numbness on one side - NEW S - Slurred speech or difficulty with word finding - NEW T - Time is BRAIN! Call 911 as soon as you recognize these symptoms Diet: Consume a regular diet rich in vegetables and lean protein such as chicken or fish. You should consume in a ratio of approximately 20% fats|40% carbohydrates|40%protein. Vegetables, sweet potatoes, brown rice or quinoa are examples of good carbohydrates. Chips, white bread, cookies and sweets/sugar are examples of bad carbohydrates. Limit your bad carbs, go wild with good carbs. "Life's Simple 7" Guidelines as per [employer] These will help you reclaim your life after surgery and wire weaver helper in your recovery, keeping in mind your restrictions. (1) Get Active. Physical activity can help people lose weight, control high b lood pressure and cholesterol, feel emotionally better, and sleep better. (2) Control Cholesterol. Avoid a diet high in saturated fat, trans fat, & cholesterol. Limit whole milk & cream, ice cream, butter, egg yolks, processed meats (like sausage and hot dogs), and fatty meats. Choose healthy foods that are low in saturated fat, trans fat and cholesterol which include: Fruits and vegetables, fiber rich grain products (like whole grain pasta and brown rice), lean meat such as chicken, fish, nuts, seeds, and legumes. (3) Eat Better. Eat small portions. Shop at the grocery with a list and do not stray from it. Tips for a healthy diet include: Limit sodium intake to less than 1500mg daily, avoid prepackaged, processed, and fast foods, choose a diet rich in fruits, vegetables, and whole grain, high fiber foods, and limit saturated & cholesterol in your diet. (4) Manage Blood Pressure. If you have high blood pressure, you should have a cuff at home so that you can check your blood pressure regularly. Be sure you have a good cuff. An arm one is generally better than a wrist one. Bring the cuff to a doctor's appointment to validate that the measurements that your cuff are taking are accurate. Take your blood pressure twice daily when you are sitting down and relaxing. Record the numbers in a log and bring this log with you to your doctors' appointments. (5) Lose Weight if your BMI is above 25. A healthy BMI is between 19-25. To calculate Your BMI, you may use a Standard BMI Calculator on the NIH BMI website: <www.nhlbi.nih.gov/guidelines/obesity/BMI/bmicalc.htm>. Weigh oneself daily. If you are overweight, set a goal to lose weight. A pound a week loss if needed is a good target. (6) Reduce Blood Sugar. Limit foods and liquids with "added sugars." (Added sugars include sucrose, fructose, glucose, maltose, dextrose, high fructose corn syrup, corn syrup, concentrated fruit juice and honey). (7) Stop Smoking. If you smoke, quitting smoking is one of the best things that you can do for your health. Smoking increases your risk of heart attack, stroke, and peripheral vascular disease, which is a build-up of plaque in your arteries. Please discard all the cigarettes and lighters in your house. Have a plan for what you will do when you have the urge to smoke. Direct and second- hand smoke shortens your life as well as the lives of your family, friends and others around you. For your health and the health of those around you, please consider quitting! Proper Bending Body Mechanics: Maintain a wide stance with one foot slightly in front of the other. Keep your back straight. Bend utilizing the strength in your hips and knees. Do not bend at the waist. Maintain the lifted object at your waist-level close to your body. Avoid lifting weight that causes immediately pain or pain anywhere in the body afterwards. Smoking/Nicotine If there was ever one thing that you could do to increase your overall health, decrease your risk of cardiovascular problems by about 39% the second you make the choice, it is to STOP SMOKING. Your body's most instant gratification is the second you stop smoking. We have all heard the studies, read the articles but it is true, smoking is extremely bad for your overall health, and moreover it is detrimental to your bone health. Nicotine, IN ANY FORM, kills bone cells, prevents your body from healing fractures, and significantly prolongs healing after surgery. In spine surgery specifically, it increases your risk of not healing your bones to create a fusion and increases your risk of having a revision surgery due to this up to 60%. I know it is hard. I know it feels impossible. But there are ways. Take control of your life. We are here to help you through it. And when you are ready, ask us and we can direct you to help if you desire. Use the START Plan to Quit Smoking (please visit the [employer] website listed below for more information): S = Set a quit date. Choose a date within the next 2 weeks, so you have enough time to prepare without losing your motivation to quit. If you mainly smoke at work, quit on the weekend, so you have a few days to adjust to the change. T = Tell family, friends, and co-workers that you plan to quit. Let your friends and family in on your plan to quit smoking and tell them you need their support and encouragement to stop. Look for a quit choco who wants to stop smoking as well. You can help each other get through the rough times. A = Anticipate and plan for the challenges you'll face while quitting. Most people who begin smoking again do so within the first 3 months. You can help yourself make it through by preparing ahead for common challenges, such as nicotine withdrawal and cigarette cravings. R = Remove cigarettes and other tobacco products from your home, car, and work. Throw away all your cigarettes (no emergency pack!), lighters, ashtrays, and matches. Wash your clothes and freshen up anything that smells like smoke. Shampoo your car, clean your drapes and carpet, and steam your furniture. T = Talk to your doctor about getting help to quit. Your doctor can prescribe medication to help with withdrawal and suggest other alternatives. If you can't see a doctor, you can get many products over the counter at your local pharmacy or grocery store, including the nicotine patch, nicotine lozenges, and nicotine gum. Resources for Quitting Smoking: <https://www.[place].gov/document s/[facility]/Quit_Tobacco_Resources_for_patients_313480_7.pdf> Supplementation: Take recommended dosages of Vitamin D and Calcium to help fortify your bones and help them to heal. See your health maintenance packet for dosages and recommended levels. DVT/VTE prophylaxis: You will be given compression stockings from the hospital. Wear these daily for the first two weeks after surgery. You may take them off at night. You may be prescribed a medication to help thin your blood. Take this as directed. If you are not prescribed this medication, early and frequent ambulation has been shown to be the best prophylaxis to deep vein thrombosis and sequelae related to this event. Discharge Disposition: HOME SELF-CARE
--- NOTE | 2023-02-04 11:42 | P.PN ---
Subjective Progress Note Date: 02/04/23 Subjective: No acute events overnight. No acute events overnight Pertinent positives and negatives as discussed above, a complete review of systems was performed and all other systems are negative. Vitals Signs Reviewed. General: nontoxic, no distress, appears at stated age Derm: warm, dry Head: atraumatic, normocephalic, symmetric, c-collar in place Eyes: EOMI, no lid lag, anicteric sclera Mouth: no lip lesion, mucus membranes moist Cardiovascular: S1S2 reg, no murmur Lungs: CTA bilateral, no rhonchi, no rales , no accessory muscle use Abdominal: soft, nontender to palpation, no guarding, no appreciable organomegaly Ext: no gross muscle atrophy, no edema, no contractures Neuro: CN II-XI grossly intact, no focal neuro deficits Psych: Alert, oriented, appropriate affect Data Reviewed Today: Pertinent Labs: Hemoglobin 10.5 Imaging: No new imaging Assessment and Plan: Status post cervical spine surgical revision Hypertension Acute blood loss anemia, anticipated outcome of surgery -On oral Tylenol, oral [place], IV Dilaudid as needed -SCDs for DVT ppx -on IV Benadryl for itching -Continue amlodipine -Blood count stable Patient is medically optimized for discharge home Thank you for allowing us to participate in the care of this pleasant patient. Do not hesitate to contact us with questions. Someone can be reached from the [facility] hospitalist group all hours of the day at [phone] or via perfect serve. Objective - Vital Signs Vital signs: Vital Signs Temp 98.4 F 02/04/23 06:40 Pulse 68 02/04/23 06:40 Resp 16 02/04/23 06:40 BP 134/79 02/04/23 06:40 Pulse Ox 98 02/04/23 06:40 FiO2 Intake & Output 02/03/23 02/04/23 02/04/23 18:59 06:59 18:59 Intake Total 200 Output Total 3140 1750 896 Balance -5270 -9130 896 Intake: Oral 200 Output: Drainage 240 Posterior Neck 240 Urine 2900 1750 200 Straight 800 700 Uretheral (Isaac) 1300 Post Void Residual 696 Other: # Voids 1 3 - Labs CBC & Chem 7: 02/04/23 04:59 02/03/23 04:06 Labs: Abnormal Lab Results - Last 24 Hours (Table) 02/04/23 Range/Units 04:59 RBC 3.29 L (4.10-5.20) X 10*6/uL Hgb 10.5 L (12.0-15.0) d/dL Hct 32.2 L (37.2-46.3) % MCV 97.9 H (80.0-97.0) FL
== END 2023-02-04 12:41 | disposition home or self-care (01) | DRG 472 ==
LOC: 2ORMAIN 06:29 → 4SSUR 12:11
PROVIDERS: ADMIT Orthopaedic Surgery; ATTEND Orthopaedic Surgery
PROC: 0RP404Z Removal of Internal Fixation Device from Cervicothoracic Vertebral Joint, Open Approach (ICD-10-PCS; principal; 2023-02-02 08:15)
PROC: 0RG40AJ Fusion of Cervicothoracic Vertebral Joint with Interbody Fusion Device, Posterior Approach, Anterior Column, Open Approach (ICD-10-PCS; principal; 2023-02-02 08:15)
PROC: 0RU Upper Joints, Supplement (ICD-10-PCS; principal; 2023-02-02 08:15)
PROC: 0RP104Z Removal of Internal Fixation Device from Cervical Vertebral Joint, Open Approach (ICD-10-PCS; principal; 2023-02-02 08:15)
PROC: 0RJ Upper Joints, Inspection (ICD-10-PCS; principal; 2023-02-02 08:15)
PROC: 0RJ10ZZ Inspection of Cervical Vertebral Joint, Open Approach (ICD-10-PCS; principal; 2023-02-02 08:15)
DX: T84.216A Breakdown (mechanical) of internal fixation device of vertebrae, initial encounter (principal); D62 Acute posthemorrhagic anemia; G95.89 Other specified diseases of spinal cord; M47.12 Other spondylosis with myelopathy, cervical region; I10 Essential (primary) hypertension; J44.9 Chronic obstructive pulmonary disease, unspecified; M40.203 Unspecified kyphosis, cervicothoracic region; M48.02 Spinal stenosis, cervical region; M25.78 Osteophyte, vertebrae; R26.89 Other abnormalities of gait and mobility; M47.22 Other spondylosis with radiculopathy, cervical region; F17.210 Nicotine dependence, cigarettes, uncomplicated; E78.5 Hyperlipidemia, unspecified; M19.90 Unspecified osteoarthritis, unspecified site; Y79.2 Prosthetic and other implants, materials and accessory orthopedic devices associated with adverse incidents; Z98.1 Arthrodesis status; Z88.8 Allergy status to other drugs, medicaments and biological substances; Z91.041 Radiographic dye allergy status; Z28.310 Unvaccinated for COVID-19
CPT/HCPCS: 72040; 72125; 80048; 85025; 86850; 86900; 86901